=== PATIENT | female | born 1980 | race Caucasian/White ===

== ENCOUNTER 2025-02-19 08:31 | Emergency (ER) | payer MEDICAID, SELFPAY ==
--- NOTE | ~2025-02-19 | CT_ITS ---
CLINICAL HISTORY: dizziness CT head without contrast Comparison: None Findings: No intra-axial mass, midline shift, hydrocephalus, or acute hemorrhage. No significant atrophy-like change or white matter disease. There is no sinus or mastoid fluid. The orbits are unremarkable. There is no acute fracture. IMPRESSION: 1. No acute intracranial findings. This document has been electronically signed by: Bernice Knox MD on 02/19/2025 17:47:25
[2025-02-19 08:39] VITALS: BP 118/84; PULSE 112
[2025-02-19 08:56] VITALS: BP 142/72; PULSE 65; RESP 18; TEMP 36.7; O2SAT 96; BMI 27.9
--- NOTE | 2025-02-19 08:56 | ED.NAVMDI ---
HPI - Nausea/Vomiting/Diarrhea General Chief complaint: General Medical Stated complaint: enlarged artery Time Seen by Provider: 02/19/25 16:50 Source: patient, EMS, RN notes reviewed and old records reviewed Mode of arrival: EMS Limitations: no limitations History of Present Illness ED Provider: Consuelo HPI Narrative: Patient is a 44-year-old female with history of sleeve gastrectomy presenting to the ED with complaint of nausea this am while driving her son to school. States that she rolled the car window and nausea improved slightly. Then while walking into work she again felt nauseated, lightheaded, near-syncopal, and had ringing in both ears. She dropped her lunchbox and had coworkers call an ambulance and get her a chair to sit down. Ringing has since resolved but she is unable to state how long that lasted. Denies chest pain, palpitations, shortness of breath. She is a non-smoker, not on OCPs, denies recent travel. LMP around one month ago. States son was recently sick with cough and sore throat, he tested negative for strep, flu, covid. Reports mild headache but states she has headaches near daily and this is typical of her usual headaches. Related Data Allergies Allergy/AdvReac Type Severity Reaction Status Date / Time cabbage Allergy Intermediate THROAT Verified 02/19/25 08:57 ITCHES latex [LATEX] Allergy Intermediate HIVES Verified 02/19/25 08:57 iris Allergy Intermediate THROAT Verified 02/19/25 08:57 ITCHES sulfamethoxazole Allergy Intermediate HIVES Verified 02/19/25 08:57 [From BACTRIM] trimethoprim [From BACTRIM] Allergy Intermediate HIVES Verified 02/19/25 08:57 Review of Systems Review of Systems: As per HPI Yes all other systems are reviewed and are negative Constitutional: Constitutional: Reports as per HPI [facility] Social History Social History Advance Directives: No Advance Directives Information Provided: No Do you have a plan to hurt others: No Plan Physical Exam Vital Signs: Vital Signs: Last Vital Signs Temp 97.9 F 02/19/25 13:45 Pulse 69 02/19/25 13:45 Resp 18 02/19/25 13:45 BP 128/85 02/19/25 13:45 Pulse Ox 100 02/19/25 13:45 O2 Del Method Room Air 02/19/25 13:45 BMI result Body Mass Index 27.9 Vital signs have been reviewed and appear to be correct. Blood pressure normal. Heart rate normal. Respiratory rate normal. Temperature normal. Oxygen saturation normal. Const: General: cooperative, healthy appearing and no acute distress Orientation/consciousness: oriented to person, oriented to place, oriented to time and patient oriented x3 Limitations: no limitations HEENT: Head: Yes normocephalic and Yes atraumatic Ears: external ears normal General nose exam: Normal external nose present Face and sinus: Yes face symmetric Mouth: oropharynx normal and moist mucous membranes Throat: Yes uvula midline Eyes: Pupils: Equal, round and reactive pupils present Neck: Neck: Yes normal visual inspection and Yes supple Resp: Effort & Inspection: normal respiratory effort and able to speak in complete sentences Auscultation: clear to auscultation bilaterally Cardio: Rate: regular rate Rhythm: regular rhythm Heart sounds: S1 normal heart sound present and S2 normal heart sound present GI: Palpation (GI): Soft to palpation and nontender Auscultation: normoactive bowel sounds : General: Yes no CVA tenderness Back/Spine/Pelvis: Back: no CVA tenderness Skin: General skin exam: elasticity normal and turgor normal Neuro: General: oriented to person, oriented to place, oriented to time, patient oriented x3, moves all extremities, no focal motor deficits and CN's II-XI intact bilaterally Cranial nerves: Yes Equal, round and reactive pupils present Cognition (Neuro): normal cognition Extrem: General: Yes full ROM, Yes no pedal edema and Yes no calf tenderness Psych: Mental Status: mental status grossly normal Affect: normal affect Thought process: Normal thought process present Course Course Course Narrative: 44 yo female with PMH of gastric sleeve now on phentermine here with c/o having episodes of shaking, feeling nausea, no pain, dizziness and ringing in her ears. She was trying to work. She states she was fine yesterday. She feels dizzines and off. She takes no medications every day. At this time will need basic lab, EKG, poc blood sugar. this is a RAPID medical screening exam the rest of the history and physical exam is to be done by the main provider. NIK 02/19/25 858am Medications Administered Discontinued Medications Generic Name Dose Route Start Last Admin Trade Name Freq PRN Reason Stop Dose Admin Ondansetron HCl 4 mg 02/19/25 08:58 02/19/25 09:00 Ondansetron Odt 4 Mg Tab.Glai BLUE 02/19/25 08:59 4 mg ONCE ONE Administration Medical Decision Making Medical Decision Making [facility] Narrative: Patient is a 44-year-old female with history of sleeve gastrectomy presenting to the ED with complaint of nausea this am while driving her son to school. On exam patient is awake, A+Ox3, VS WNL, afebrile, normal neurological exam without focal deficits, physical exam findings as above. Given reported symptoms and physical exam findings, initial differential includes but is not limited to viral illness, electrolyte abnormality, cardiac arrhythmia, . Unlikely ACS, PE, CVA/ICH. Labs unremarkable, negative troponin x 2, negative d-dimer. EKG shows NSR. HCG of 3 while technically negative could be indicative of very early . This was discussed with patient and it was recommended that she either use a home test or have repeat bloodwork if her upcoming menstrual cycle is late. CT head notable for no acute abnormalities. My interpretation is in agreement with the radiologist's interpretation. Strep negative. Viral panel pending but through shared decision making, patient opted for discharge and we will call with positive flu/covid results. Advised patient to follow up with PCP for any ongoing symptoms, discussed with patient that if symptoms persist she may need a referral to cardiology for a Holter monitor. Return precautions discussed. Patient verbalized understanding of and agreement with plan. Differential Diagnosis Differential Diagnoses: The differential diagnosis associated with the presentation includes As per [facility] Admission/Observation Consideration of admission/observation: Escalation of care including admission/observation considered Patient would have been admitted to the hospital had their work up had any findings where hospital admission was appropriate and their clinical presentation warranted hospital admission. Lab Data [facility] Lab Attestation statement: I reviewed the patient's lab results. As per [facility] 02/19/25 09:14 02/19/25 09:14 Labs: Lab Results 02/19/25 02/19/25 02/19/25 Range/Units 09:14 14:22 18:01 WBC 3.8 L (4.8-10.8) X10*3/uL RBC 5.05 (4.20-5.50) X10*6/uL Hgb 13.8 (12.0-16.0) g/dl Hct 41.9 (37.0-47.0) % MCV 83.0 (80.0-98.0) fL MCH 27.3 (27.0-33.0) pg MCHC 32.9 (31.0-35.0) g/dl RDW 13.5 (11.0-16.0) % Plt Count 319 (160-400) X10*3/uL MPV 9.4 (9.4-12.3) fL Immature Gran % (Auto) 0.3 (0.0-0.4) % Neut % (Auto) 68.5 (45-73) % Lymph % (Auto) 20.3 (20-40) % Hodgeman % (Auto) 6.4 (2-11) % Eos % (Auto) 4.0 (0-4) % Baso % (Auto) 0.5 (0-2) % Lymph # (Auto) 0.8 L (1.2-4.9) X10*3/uL Hodgeman # (Auto) 0.2 (0.1-1.2) X10*3/uL Eos # (Auto) 0.2 (0.0-0.4) X10*3/uL Baso # (Auto) 0.0 (0.0-0.2) X10*3/uL Abs Immat Gran (auto) 0.01 (0.00-0.03) X10*3/uL Absolute Neuts (auto) 2.6 (2.0-8.3) x10*3/uL Absolute Nucleated RBC 0.000 (0.0-0.012) X10*3/uL Nucleated RBC % (auto) 0.0 (0.0-0.2) /100WBC PT 11.3 (10.9-12.4) SEC INR 1.0 (0.9-1.1) APTT 36.3 (26.0-36.8) SEC D-Dimer High Sensitivty < 150 NG/ML Sodium 142 (135-145) mmol/L Potassium 3.4 (3.3-5.1) mmol/L Chloride 107 (96-108) mmol/L Carbon Dioxide 29 (22-29) mmol/L Anion Gap 9 L (12-20) BUN 14 (9-16) mg/dL Creatinine 0.79 (0.5-1.4) mg/dL Estim Creat Clear Calc 96.1 Estimated GFR > 60 Random Glucose 88 (60-115) mg/dL Calcium 9.9 (8.4-10.2) mg/dL Magnesium 1.9 (1.6-2.6) mg/dL Total Bilirubin 1.0 (0.0-1.0) mg/dL Direct Bilirubin 0.3 (0.0-0.5) mg/dL AST 23 (5-31) U/L ALT 14 (0-31) U/L Alkaline Phosphatase 82 (39-117) U/L Troponin I High Sens < 2.7 < 2.7 (<3.5-17.0) ng/L Total Protein 7.8 (6.5-8.0) g/dL Albumin 4.8 (3.5-5.0) g/dL Lipase 30 (8-78) U/L TSH 1.94 (0.32-4.0) uIU/mL Beta HCG, Quant 3 mIU/mL S. pyogenes GrpA DALILA Negative (Negative) Independent Interpretation I performed an independent interpretation of an: EKG (normal sinus rhythm, rate 66bpm, normal HI interval and QTc) and CT Scan Interpretation: CT head is without any acute abnormalities. Radiology Impression Discussion of test interpretation with radiology: I have reviewed the radiologist's reading. Radiologist Impression: CT head without contrast Comparison: None Findings: No intra-axial mass, midline shift, hydrocephalus, or acute hemorrhage. No significant atrophy-like change or white matter disease. There is no sinus or mastoid fluid. The orbits are unremarkable. There is no acute fracture. IMPRESSION: 1. No acute intracranial findings. External Record Review External record reviewed: Inpatient record, Office record and Outpatient record Discharge Plan Discharge Clinical Impression: Light-headedness Patient Disposition: Home, Self-Care Instructions: Lightheadedness (ED) Additional Instructions: You were evaluated in the emergency department today for an episode of lightheadedness. Your EKG, labs, urinalysis, and CT scan of your brain were all very reassuring. You tested negative for strep. Your flu/RSV/Covid test is pending and we will contact you with any positive results. Your hCG level today was 3 which, while technically negative, could be indicative of very early . If your next menstrual cycle is late, we recommend taking a home test or having your HCG level rechecked either by your PCP or [facility]. Follow up with your primary care provider if your symptoms persist, as you may need a referral to cardiology for a Holter monitor. Return to the ED if you experience fainting, ongoing dizziness/lightheadedness, chest pain, difficulty breathing, fever, or any other new or concerning symptoms. Print Language: Chinese
--- NOTE | 2025-02-19 08:58 | ECG_ITS ---
Test Reason : dizziness Blood Pressure : */* mmHG Vent. Rate : 66 BPM Atrial Rate : 66 BPM P-R Int : 196 ms QRS Dur : 88 ms QT Int : 394 ms P-R-T Axes : 48 -18 22 degrees QTcB Int : 413 ms Normal sinus rhythm Normal ECG No previous ECGs available Referred By: Bridget Lemus Electronically Signed By: SHAY WHATLEY MD
[2025-02-19] MEDS: Ondansetron ODT 4 MG TAB.RAPDIS TRANSLINGU (09:00)
[2025-02-19 09:18] LABS: MANUAL DIFF FLAG NO
[2025-02-19 09:25] LABS: Basophils Percent Auto 0.5 % (0-2); Eosinophils Absolute Auto 0.2 X10*3/uL (0.0-0.4); Hematocrit 41.9 % (37.0-47.0); Hemoglobin 13.8 g/dl (12.0-16.0); Imm Gran Abs Auto 0.01 X10*3/uL (0.00-0.03); Imm Gran Pct Auto 0.3 % (0.0-0.4); Lymphocytes Absolute Auto 0.8 X10*3/uL (1.2-4.9); Lymphocytes Percent Auto 20.3 % (20-40); Mean Corpuscular HGB Conc 32.9 g/dl (31.0-35.0); Mean Corpuscular Hemoglobin 27.3 pg (27.0-33.0); Mean Platelet Volume 9.4 fL (9.4-12.3); Monocytes Absolute Auto 0.2 X10*3/uL (0.1-1.2); Monocytes Percent Auto 6.4 % (2-11); Neutrophils Absolute Auto 2.6 x10*3/uL (2.0-8.3); Neutrophils Percent Auto 68.5 % (45-73); Platelet Count 319 X10*3/uL (160-400); Red Blood Count 5.05 X10*6/uL (4.20-5.50); Red Cell Distribution Width 13.5 % (11.0-16.0); White Blood Count 3.8 X10*3/uL (4.8-10.8)
[2025-02-19 09:45] LABS: Alanine Aminotransferase 14 U/L (0-31); Albumin Level 4.8 g/dL (3.5-5.0); Alkaline Phosphatase 82 U/L (39-117); Anion Gap 9 (12-20); Aspartate Amino Transferase 23 U/L (5-31); Bilirubin Direct 0.3 mg/dL (0.0-0.5); Blood Urea Nitrogen 14 mg/dL (9-16); Calcium 9.9 mg/dL (8.4-10.2); Carbon Dioxide 29 mmol/L (22-29); Chloride 107 mmol/L (96-108); Creatinine Clr Calc Pharmacy 96.1; Estimated Glomerular Filt Rate > 60; Glucose Random 88 mg/dL (60-115); Lipase 30 U/L (8-78); Magnesium 1.9 mg/dL (1.6-2.6); Potassium 3.4 mmol/L (3.3-5.1); Sodium 142 mmol/L (135-145); Total Protein 7.8 g/dL (6.5-8.0)
[2025-02-19 09:47] LABS: HCG Quantitative 3 mIU/mL
[2025-02-19 09:50] LABS: Troponin-I High Sensitivity < 2.7 ng/L (<3.5-17.0)
[2025-02-19 13:45] VITALS: BP 128/85; PULSE 69; RESP 18; TEMP 36.6; O2SAT 100
[2025-02-19 14:36] LABS: Prothrombin Time 11.3 SEC (10.9-12.4)
[2025-02-19 14:38] LABS: Partial Thromboplastin Time 36.3 SEC (26.0-36.8)
[2025-02-19 14:47] LABS: Troponin-I High Sensitivity < 2.7 ng/L (<3.5-17.0)
[2025-02-19 16:23] LABS: D Dimer High Sensitivity < 150 NG/ML
[2025-02-19 17:51] LABS: TSH reflex Free T4 1.94 uIU/mL (0.32-4.0)
[2025-02-19 18:13] LABS: IDNOW Serial# 6674DD1D; Strep A Nucleic Acid Negative (Negative)
--- OUTSIDE RECORDS SUMMARY | 2025-02-19 18:23 | XMS_ITS | Clinical Summary ---
Author Organization [facility] Address [address] [place] [address] Care Team Providers Care Terminal Worker Name Role Phone Negin Patel MD Primary Care Provider Allergies Active Allergy Reactions Criticality Noted Date Comments Sulfamethoxazole-Trimethoprim 2023 Ekepevwdyq-Wkeb-Ilafgtwb Nausea And Vomiting Kiwi Extract Hives 03/05/2020 Latex 04/11/2024 Naproxen 04/11/2024 Shellfish 04/11/2024 Shellfish Allergy Hives 03/05/2020 scallop Medications Medication Sig Dispensed Refills Start Date End Date Status cetirizine (ZyrTEC ALLERGY) 10 MG tablet Take 1 tablet (10 mg total) by mouth daily. 0 Active Active Problems Problem Noted Date Diagnosed Date Iron deficiency anemia 04/11/2024 Cubital tunnel syndrome on right 12/27/2023 04/11/2024 Overweight (BMI 25.0-29.9) 09/07/202304/11 Intestinal malabsorption following gastrectomy 0 01/05/2021 04/11/2024 CLEMENTE (generalized anxiety disorder) 08/25/2020 04/11/2024 Vitamin D deficiency 07/03/2020 04/11/2024 GERD (gastroesophageal reflux disease) 8 04/11/2024 Family History Medical History Relation Name Comments Colon cancer Maternal Grandfather Relation Name Status Comments Father Alive Maternal Grandfather Mother Alive Social History Tobacco Use Types Packs/Day Years Used Date Smoking Tobacco: Never Smokeless Tobacco: Never Tobacco Cessation:Counseling Given: Not Answered Alcohol Use Standard Drinks/Week Comments Not Currently 0 (1 standard drink = 0.6 oz pur e alcohol) Sex and Gender Information Value Date Recorded Sex Assigned at Female 03/20/2024 12:31 PM EDT Gender Identity Not on file Sexual Orientation Not on file Job Start Date Occupation Industry Not on file Not on file Not on file Last Filed Vital Signs Vital Sign Reading Time Taken Comments Blood Pressure 104/66 05/08/2024 9:06 AM EDT Pulse 73 05/08/2024 9:06 AM EDT Temperature 36.2 ??C (97.2 ??F) 05/08/2024 9:06 AM ED T Respiratory Rate 18 05/08/2024 9:06 AM EDT Oxygen Saturation 100% 05/08/2024 9:06 AM EDT Inhaled Oxygen Concentration - - Weight 77.9 kg (171 lb 11.8 oz) 04/18/2024 2:10 PM EDT Height 167.6 cm (5' 6 ) 04/11/2024 12:5 8 PM EDT Body Mass Index 27.72 04/11/2024 12:58 PM EDT Plan of Treatment Health Maintenance Due Date Last Done Comments Hepatitis C Screening 1980 Depression Screening 1992 BMI Counseling 1998 Preventative Health Evaluation 1998 Cervical Cancer Screening (Pap Smear) 2001 Hepatitis B Vaccines (3 of 3 - 19+ 3-dose series) 11/22/2011 06/23/2011, 06/23/2011, 05/24/2011, Additional history exists DTap / Tdap / Td (2 - Td or Tdap) 05/18/2021 05/18/2011 COVID-19 Vaccine ( season) 2024 11/07/2021, 03/09/2021, 02/16/2021 Influenza Vaccine (Season Ended) 2025 11/07/2021, 09/20/2021, 06/08/2020, Additional history exists Pneumococcal Vaccine Aged Out No long er eligible based on patient's age to complete this topic RSV Ped < 20 months Aged Out No longe r eligible based on patient's age to complete this topic Care Teams Terminal Worker Relationship Specialty Start Date End Date Negin Patel MD [address] [phone] PCP - General Internal Medicine 03/20/24
[2025-02-19 18:34] VITALS: BP 120/74; PULSE 68; RESP 19; TEMP 36.5; O2SAT 99
[2025-02-19 18:40] VITALS: BP 120/74; PULSE 68; RESP 19; TEMP 36.5; O2SAT 99
[2025-02-19 18:43] LABS: Influenza A PCR NEGATIVE (Negative); Influenza B PCR NEGATIVE (Negative); Resp Syncy Virus RNA Qual PCR NEGATIVE (Negative); SARS COV2 PCR INHOUSE NEGATIVE (Negative)
== END 2025-02-19 18:41 | disposition home or self-care (01) ==
PROVIDERS: Emergency Medicine; Physician Assistant; Registered Nurse Emergency; Emergency Provider Emergency Medicine; PCP Internal Medicine
DX: R42 Dizziness and giddiness (principal); Z03.818 Encounter for observation for suspected exposure to other biological agents ruled out
CPT/HCPCS: 0241U; 36415; 70450; 80048; 80076; 83690; 83735; 84443; 84484; 84702; 85025; 85379; 85610; 85730; 87651; 93005; 99284

== ENCOUNTER → 2025-02-19 08:58 | Outpatient (BNV) | payer OTHER, SELFPAY | PROVIDERS: Visit Provider Internal Medicine Cardiovascular Disease | DX: R42 Dizziness and giddiness (principal) | CPT/HCPCS: 93010 ==

== ENCOUNTER → 2025-02-19 16:37 | Outpatient (BNV) | payer MEDICAID, SELFPAY | PROVIDERS: Emergency Provider Emergency Medicine; PCP Internal Medicine; Visit Provider Radiology Diagnostic Radiology | DX: R42 Dizziness and giddiness (principal) | CPT/HCPCS: 70450 ==

== ENCOUNTER 2025-03-25 10:58 | Outpatient (REF) | payer OTHER, SELFPAY ==
--- OUTSIDE RECORDS SUMMARY | 2025-01-20 09:59 | XMS_ITS | Continuity of Care Document ---
Author Organization [facility] Address [address] [place] [address] Dr [address] [place] [id number] Phone Care Team Providers Care Curtain Feller Blindstitch Name Role Phone Dyllan MOLINA, ONUR, Al HUSSEIN Unavailable U navailable Advance Directives Directive Yes / No Effective Date File Name No Information Encounters Encounter Description Practice Location Reason(s) For Visit Diagnoses Date Provider Providers Copied on Encounter [facility], [address] [place] [address] [address], [place], [id number], tel:[phone] [facility] No Information 5 Dyllan MOLINA, KEENAN MOHR. [address] [place] [address], [place], [place], [id number] , [place]. tel:[phone] Family History Family Member Type Diagnosis Age At Onset No Information Payers Payer name Insurance type Covered alliance party ID Authoriza tion(s) No Information Social History Type Description Quantity Date Captured Comments Sex Female Smoking Status No Information Chief Complaint And Reason For Visit No Information Reason For Referral Reason For Referral No Information History Of Present Illness Encounter Date Complaint History Of Prese nt Illness No Information Functional Status Date Functional Assessmen t No Information Instructions Date Instruction Additional Infor mation No Information Assessments Type Assessment Date No Information Patient Care Teams Name Effective Dates (start - stop) Status Members No Information
--- OUTSIDE RECORDS SUMMARY | 2025-03-25 12:23 | XMS_ITS | Clinical Summary ---
Author Organization [facility] Address [address] [place] [address] Care Team Providers Care Bicycle I Assembler Name Role Phone Pcp, No Primary Care Provider Unavailabl e Social History Tobacco Use Types Packs/Day Years Used Date Smoking Tobacco: Never Assessed Comments Unknown Sex and Gender Information Value Date Recorded Sex Assigned at Not on file Legal Sex Female 6:38 PM EST Gender Identity Not on file Sexual Orientation Not on file Plan of Treatment Health Maintenance Due Date Last Done Comments Hepatitis C Virus Screening 1980 HIV Screening 1993 DTaP/Tdap/Td Vaccines (1 - Tdap) 1999 Hepatitis B Vaccines (1 of 3 - 19+ 3-dose series) 1999 COVID-19 Vaccine (2023-2 5 season) 2024 HPV Vaccines Aged Out No longer eligi ble based on patient's age to complete this topic Pneumococcal Vaccine: Pediat yassine (0-5 Years) and At-Risk Patients (6 to 49 Years) Aged Out No longer eligible b ased on patient's age to complete this topic Care Teams Bicycle I Assembler Relationship Specialty Start Date End Date Pcp, No [address] [place] [address] PCP - General 11/19/20
--- OUTSIDE RECORDS SUMMARY | 2025-03-25 12:23 | XMS_ITS | Clinical Summary ---
Author Organization [facility] Address [address] [place] [address] Care Team Providers Care Magneto Repairer Name Role Phone Negin Patel MD Primary Care Provider [phone] Allergies Active Allergy Reactions Criticality Noted Date Comments Sulfamethoxazole-Trimethoprim 2023 Ovmhzdikib-Xykc-Sodgfyzj Nausea And Vomiting Kiwi Extract Hives 03/05/2020 [...] 73 05/08/2024 9:06 AM EDT Temperature 36.2 C (97.2 F) 05/08/2024 9:06 AM EDT Respiratory Rate 18 05/08/2024 9:06 AM EDT [...] season) 2024 11/07/2021, 03/09/2021, 02/16/2021 Influenza Vaccine (#1) 2025 2, 09/20/2021, 06/08/2020, Additional history exists Pneumococcal Vaccine Aged Out No long er eligible based on patient's age to complete this topic RSV Ped < 20 months Aged Out No longe r eligible based on patient's age to complete this topic Care Teams Magneto Repairer Relationship Specialty Start Date End Date Negin Patel MD [address] [place] [phone] PCP - General Internal Medicine 03/20/24
[2025-03-25 13:44] LABS: MANUAL DIFF FLAG NO
[2025-03-25 13:57] LABS: Hematocrit 38.7 % (37.0-47.0); Hemoglobin 12.5 g/dl (12.0-16.0); Imm Gran Abs Auto 0.02 X10*3/uL (0.00-0.03); Imm Gran Pct Auto 0.4 % (0.0-0.4); Lymphocytes Absolute Auto 1.1 X10*3/uL (1.2-4.9); Mean Corpuscular HGB Conc 32.3 g/dl (31.0-35.0); Mean Corpuscular Hemoglobin 27.0 pg (27.0-33.0); Mean Corpuscular Volume 83.6 fL (80.0-98.0); NRBC Abs Auto 0.000 X10*3/uL (0.0-0.012); NRBC Pct Auto 0.0 /100WBC (0.0-0.2); Platelet Count 328 X10*3/uL (160-400); Red Blood Count 4.63 X10*6/uL (4.20-5.50); White Blood Count 5.5 X10*3/uL (4.8-10.8)
[2025-03-25 14:37] LABS: Iron 82 mcg/dL (30-160); Percent Iron Saturation 28 % (15-50); Total Iron Binding Capacity 296 mcg/dL (228-428); Unsaturated Iron Binding 214 ug/dL
[2025-03-25 14:47] LABS: Vitamin B12 300 pg/mL (200-900)
== END 2025-03-25 10:59 | disposition home or self-care (01) ==
LOC: HO.HHCL 10:58
PROVIDERS: PCP Internal Medicine; Visit Provider Internal Medicine
DX: D50.9 Iron deficiency anemia, unspecified (principal)
CPT/HCPCS: 36415; 82607; 83540; 85025

== ENCOUNTER 2025-07-02 09:44 | Outpatient (REF) | payer OTHER, SELFPAY ==
--- OUTSIDE RECORDS SUMMARY | 2025-07-02 11:29 | XMS_ITS | Encounter Summary ---
Author Organization [facility] Address [address] [place] [address] Care Team Providers Care Sports Teacher Name Role Phone Negin Patel MD Primary Care Provider [phone] Reason for Visit * Reason Onset Date Comments Vaginal Pain 07/01/2025 Encounter Details Date Type Department Care Team (Late st Contact Info) Description 07/01/2025 Telephone Obstetrics and [facility]necology [facility] [place] [address] [place] [address] Jessenia Coles CNM [address] [place] [phone] Social History Tobacco Use Types Packs/Day Years Used Date Smoking Tobacco: Never Smokeless Tobacco: Never Alcohol Use Standard Drinks/Week Comments Never 0 (1 standard drink = 0.6 oz pur e alcohol) Housing Instability Answer Date Recorde d Are you worried that in the next 2 months you may not have stable housing? No 03/26/2025 Food Access & Nutrition Answer Date Rec orded Do you have access to a vari ety of food including fruits and vegetables? Yes 03/26/2025 Health Literacy Answer Date Recorded How often do you need to hav e someone help you when you read instructions, pamphlets, or other written material from your doctor or pharmacy? Never 03/26/2025 Caregiver: How often do you need to have someone help you when you read instructions, pamphlets, or other written material from your doctor or pharmacy? Not on file 03/26/2025 Financial Risk Answer Date Recorded How hard is it for you to pa y for the very basics like food, housing, medical care, and air conditioning / heating? Not very hard 03/26/2025 Transportation Answer Date Recorded Has the lack of transportati on kept you from meetings, work, or from getting things needed for daily living? No Has the lack of transportati on kept you from medical appointments or from getting medications? No 03/26/2025 Social Isolation Answer Date Recorded How often do you feel lonely or isolated from th ose around you? Never 03/26/2025 Food Risk Answer Date Recorded Within the past 12 months we worried whether our food would run out before we got money to buy more. Never true 03/26/2025 Within the past 12 months th e food we bought just didn't last and we didn't have money to get more. Never true 03/26/2025 Dependent Care Answer Date Recorded Do you need help finding or paying for care for your loved ones. For example, child's nurse or elderly care for an older adult? No 03/26/2025 Education Answer Date Recorded Do you think completing more education or training, like finishing a GED, going to college, or learning a trade, would be helpful for you? Yes 03/26/2025 Employment and Income Answer Date Recor ded During the last four weeks, have you been actively looking for work? Yes 03/26/2025 Living Situation Answer Date Recorded What is your living situation? Unrecognized valu e 03/26/2025 Comments Unknown Sex and Gender Information Value Date Recorded Sex Assigned at Female 12/04/2024 12:28 PM EDT Legal Sex Female 1:09 PM EST Gender Identity Female 12/04/2024 12:28 PM EDT Sexual Orientation Straight 12/04/2024 12 :28 PM EDT documented as of this encounter Functional Status * Are you deaf or do you have serious difficulty hearing? Answer Date of Assessment Author No 12/04/2024 1:30 PM EDT Srinivasa Eng, RN * Are you blind or do you have serious difficulty seeing, even when wearing glasses? Answer Date of Assessment Author No 12/04/2024 1:30 PM EDT Srinivasa Eng RN * Do you have serious difficulty walking or climbing stairs? Answer Date of Assessment Author No 12/04/2024 1:30 PM EDT Srinivasa Eng RN * Do you have serious difficulty dressing or bathing? Answer Date of Assessment Author No 12/04/2024 1:30 PM EDT Srinivasa Eng RN * Because of a physical, mental, or emotional condition, do you have serious difficulty doing errandsalone such as visiting the doctor? Answer Date of Assessment Author No 12/04/2024 1:30 PM EDT Srinivasa Eng RN documented as of this encounter Mental Status * Because of a physical, mental, or emotional condition, do you have serious difficulty concentrating, remembering, or making decisions? 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 Is now calling with complaints of burning andirritation. Feels like coming from urethra but not sure. Symptoms started on Monday. Started with a lot of etienne/pressure as if she had to push. She kept trying but nothing would come out. She reports has to void every 2 seconds. Has so much pressure. When voids/wipes sees light pink blood and is still seeing this today. Reports urethral area hurts. No fever, chills, n/v, flank pain.Urine has no odor and looks to be light yellow. Requesting order for urine culture to be faxed to [facility] fax [phone] as she works there. Lab order placed and faxed as requested. Instructed to push fluids, tylenol/motrin prn pain. * Dot Melida - 07/01/2025 1:44 PM EDT Chief Complaint/problem: patient would like to speak to nurse regarding vaginal burning and irritation How long has the patient had this problem? - Pt???s [employer] provider: Jessenia Coles CNM Last menstrual period (LMP) or EDC (due date): - documented in this encounter Plan of Treatment Upcoming Encounters Date Type Department Care Team (Late st Contact Info) Description 07/25/2025 9:45 AM EST Office Visit Internal Medicine - [place] 175 [facility] [address] [place] [phone] Negin Patel MD 175 [facility] [address] [place] [phone] 08/19/2025 9:15 AM EST Office Visit Bariatric Surgery - [place] 175 [facility] [address] [place] [phone] Clay Ibarra MD [address] [place] [phone] 10/06/2025 9:00 AM EST Office Visit [facility] Hematology Oncology [address] [place] [phone] Leann Prince DO [address] [place] [address] 10/13/2025 3:20 PM EST Office Visit Gastroenterology - 299 [facility] 299 [facility] [address] [place] [phone] Olga Laws NP 175 [facility] [address] [place] [address] Scheduled Orders Name Type Priority Associated Diagnoses Orde r Schedule Urinalysis with reflex microscopic and culture Lab Routine Urinary urgency Hematuria, unspecified type Urinary frequency 1 Occurrences starting 07/01/2025 until 07/01/2026 documented as of this encounter Visit Diagnoses Diagnosis Urinary urgency- Primary Urgency of urination Hematuria, unspecified type Urinary frequency documented in this encounter Additional Health Concerns Assessment Noted Time PHQ-9 Depression Total Score: 4 03/26/20 25 6:56 PM EDT documented as of this encounter Care Teams Sports Teacher Relationship Specialty Start Date End Date Negin Patel MD [address] [place] [phone] PCP - General Internal Medicine 04/08/22 documented as of this encounter
--- OUTSIDE RECORDS SUMMARY | 2025-07-02 11:29 | XMS_ITS | Clinical Summary ---
Author Organization [facility] Address [address] [place] [address] Phone Care Team Providers Care Concrete Bucket Loader Name Role Phone Negin Patel MD Primary Care Provider [phone] Allergies Active Allergy Reactions Criticality Noted Date Comments Butalbital-Acetaminoph en-Caff Nausea And Vomiting 06/26/2009 Shellfish Containing Products 06/28/2022 Latex Anaphylaxis,Hives,It c ankit,Rash,Shortness Of Breath,Dermatitis,Swe lling High 12/04/2008 Naproxen 01/25/2017 Hives Sulfa (Sulfonamide Antibiotics) Anaphylaxis,Hives,Itc ankit,Shortness Of Breath,Swelling High 06/28/2022 Sulfamethoxazole-Trime thoprim Swelling,Itching,Hive s 05/05/2009 Had Bactrim DS x 4 pills. Medications amitriptyline (ELAVIL) 25 MG tablet 06/25/2022 Active cetirizine (ZYRTEC) 10 MG tablet Take 1 tablet by mouth 2 (two) times a day. 06/14/2022 Active cyanocobalamin, vitamin B-12, 500 MCG tablet Take 500 mcg by mouth daily. 04/24/2022 Active EPINEPHrine (SYMJEPI) 0.3 mg/0.3 mL syringe Inject 1 Device as directed. 12/30/2021 Active hydrOXYzine (VISTARIL) 25 MG capsule Take 25 mg by mouth. 04/12/2022 Active cephalexin (KEFLEX) 500 MG capsule Take 1 capsule (500 mg total) by mouth 4 (four) times a day. 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 INFLUENZA, SPLIT VIRUS, TRIV ALENT W/ PRESERVATIVE IM 07/12/2017,06/06/2016,09/12/2014,2011 Influenza Quadrivalent MDCK Preservative Free IM 06/08/2020 Influenza, Unspecified Formulation 11/07/2021 PPD Test 06/06/2016, 4,12/19/2012,2010 Td (adult),2 Lf Tetanus Toxo id, PF, Adsorbed 09/20/2021 Tdap 05/18/2011,05/18/2011 Family History Medical History Relation Comments Heart attack Maternal Grandfather Relation Status Comments Father Alive Maternal Grandfather Mother Alive Social History Tobacco Use Types Packs/Day Years Used Date Smoking Tobacco: Never Smokeless Tobacco: Never Tobacco Cessation:Counseling Given: Not Answered Alcohol Use Standard Drinks/Week Comments Never 0 (1 standard drink = 0.6 oz pur e alcohol) Education Answer Date Recorded Are you interested in more education? Not on tres e 01/07/2023 Are you concerned about learning? Not on file 01/07/2023 No 01/07/2023 No 01/07/2023 Digital Access Answer Date Recorded No 02/05/2023 No 02/05/2023 No 02/05/2023 Reliable internet access at home? Not on file 02/05/2023 Device with a working camera? Not on file Intimate Partner Violence Answer Date R ecorded Are you denied basic needs s uch as food, clothing, or medical care? No 08/29/2022 In the past 12 months have y ou been in a relationship with a person who hurts, threatens, or tries to control you? No 08/29/2022 Are you denied basic needs s uch as food, clothing, or medical care? No 08/29/2022 In the past 12 months have y ou been in a relationship with a person who hurts, threatens, or tries to control you? No 08/29/2022 Comments No Sex and Gender Information Value Date Recorded Sex Assigned at Female 06/25/2022 4:46 PM EDT Legal Sex Female 11:53 AM EDT Gender Identity Female 06/25/2022 4:46 PM EDT Sexual Orientation Not on file Last Filed Vital Signs Vital Sign Reading Time Taken Comments Blood Pressure 110/67 08/29/2022 1:00 PM EST Pulse 66 08/29/2022 1:00 PM EST Temperature 36.5 C (97.7 F) 08/29/2022 12:30 PM EST Respiratory Rate 18 08/29/2022 1:00 PM EST Oxygen Saturation 98% 08/29/2022 1:00 PM EST Inhaled Oxygen Concentration - - Weight 71.7 kg (158 lb) 08/29/2022 8:50 AM EST Height 167.6 cm (5' 6 ) 08/29/2022 8:50 AM EST Body Mass Index 25.5 08/29/2022 8:50 AM EST Plan of Treatment Health Maintenance Due Date Last Done Comments LIPID PANEL 1980 DEPRESSION SCREENING 1992 HEPATITIS C SCREENING 1998 HIV ONE-TIME SCREENING (18-65 YEARS) 1998 PAP SMEAR 2001 SCREENING FOR DIABETES 2015 MAMMOGRAM 2020 INFLUENZA VACCINE (#1) 2025 2, 09/20/2021, 06/08/2020, Additional history exists COVID-19 VACCINE ( season) 2025 11/07/2021, 11/07/2021, 03/09/2021, Additional history exists COLOGUARD 2025 COLONOSCOPY 2025 COLORECTAL CANCER SCREENING 2025 FIT TEST 2025 FOBT 2025 SIGMOIDOSCOPY 2025 VIRTUAL COLONOSCOPY 2025 Adult Td,Tdap Booster 12/04/2031 12/03/2021 , 09/20/2021, 09/20/2021, Additional history exists SMOKING STATUS SCREENING (Once After 26 Yrs) Completed 08/29/2022 HEPATITIS A VACCINES Aged Out No long er eligible based on patient's age to complete this topic HIB VACCINES Aged Out No longer eligi ble based on patient's age to complete this topic MENINGOCOCCAL VACCINES (ACWY) Aged Out No longer eligible based on patient's age to complete this topic MENINGOCOCCAL VACCINES (B) Aged Out N o longer eligible based on patient's age to complete this topic PNEUMOCOCCAL VACCINES (0-49 years) Aged Out No longer eligible based on patient's age to complete this topic Medical Devices Not on file Insurance [employer] [facility] [place] [facility]CO [facility] ALL[facility] ACO [employer] Advance Directives For more information, please contact: [phone] (9AM - 5PM [place], Monday-Monday) * Full Code (Latest Code Status on File) Date Activated Date Inactivated Comments 08/29/2022 8:13 AM Question Answer Comments Code Status Confirmed With: Patient Care Teams Concrete Bucket Loader Relationship Specialty Start Date End Date Negin Patel MD [address] [phone] PCP - General Internal Medicine 05/17/22 Additional Source Comments The information contained in this document represents components of the legal health record. It is not the complete legal health record.[facility]
--- OUTSIDE RECORDS SUMMARY | 2025-07-02 11:29 | XMS_ITS | Encounter Summary ---
Author Organization [facility] Address [address] [place] [address] Phone Care Team Providers Care Rehab Trainer Name Role Phone Negin Patel MD Primary Care Provider [phone] Encounter Details Date Type Department Care Team (Late st Contact Info) Description 08/29/2022 Procedure Pass OR Admitting Dept - Virtual Department [address] [place] [address] Social History Tobacco Use Types Packs/Day Years Used Date Smoking Tobacco: Never Smokeless Tobacco: Never Alcohol Use Standard Drinks/Week Comments Never 0 (1 standard drink = 0.6 oz pur e alcohol) Intimate Partner Violence Answer Date R ecorded [...] PM EDT Sexual Orientation Not on file documented as of this encounter Plan of Treatment Not on file documented as of this encounter Visit Diagnoses Not on filedocumented in this encounter Care Teams Rehab Trainer Relationship Specialty Start Date End Date Negin Patel MD [address] [phone] PCP - General Internal Medicine 05/17/22 documented as of this encounter Additional Source Comments The information contained in this document represents components of the legal health record. It is not the complete legal health record.[facility]
--- OUTSIDE RECORDS SUMMARY | 2025-07-02 11:29 | XMS_ITS | Encounter Summary ---
Author Organization [facility] Address [address] [place] [address] Care Team Providers Care Airplane Flight Attendant Name Role Phone Negin Patel MD Primary Care Provider [phone] Encounter Details Date Type Department Care Team ([facility] st Contact Info) Description 06/17/2025 Results Follow-Up Internal Medicine - [place] 175 [facility] [address] [place] [phone] Negin Patel MD 175 [facility] [address] [place] [phone] Social History Tobacco Use Types Packs/Day Years [...] care for your loved ones. For example, director of child welfare services or elderly care for an older adult? [...] 1:30 PM EDT Srinivasa Eng RN * Are you blind or do [...] Srinivasa Eng RN documented in this encounter Plan of Treatment Upcoming Encounters Date Type Department Care Team (Late st Contact Info) Description 07/25/2025 9:45 AM EST Office Visit Internal Medicine - [place] 175 [facility] [address] [place] [phone] Negin Patel MD 175 [facility] [address] [place] [phone] 08/19/2025 9:15 AM EST Office Visit Bariatric Surgery - [place] 175 [facility] [address] [place] [phone] Clay Ibarra MD [address] [place] [phone] 10/06/2025 9:00 AM EST Office Visit [facility] Hematology Oncology [address] [place] [phone] Leann Prince DO [address] [place] [address] 10/13/2025 3:20 PM EST Office Visit Gastroenterology - 299 [facility] 299 [facility] [address] [place] [phone] Olga Laws NP [address] [address] documented as of this encounter Visit Diagnoses Not on filedocumented in this encounter Additional Health Concerns Assessment Noted Time PHQ-9 Depression Total Score: 4 03/26/20 25 6:56 PM EDT documented as of this encounter Care Teams Airplane Flight Attendant Relationship Specialty Start Date End Date Negin Patel MD [address] [phone] PCP - General Internal Medicine 04/08/22 documented as of this encounter
--- OUTSIDE RECORDS SUMMARY | 2025-07-02 11:29 | XMS_ITS | Clinical Summary ---
Author Organization [facility] Address [address] [place] [address] Care Team Providers Care Operations Technician Name Role Phone Negin Patel MD Primary Care Provider [phone] Allergies Active Allergy Reactions Criticality Noted Date Comments Sulfamethoxazole-Trimethoprim 2023 Gtnkcwocgq-Vdyf-Yuuvpzzc Nausea And Vomiting Kiwi Extract Hives 03/05/2020 [...] Tdap) 05/18/2021 05/18/2011 COVID-19 Vaccine ( season) 2025 11/07/2021, 03/09/2021, 02/16/2021 Influenza Vaccine (#1) 2025 2, 09/20/2021, 06/08/2020, Additional history exists Colon Cancer Screening (Colonoscopy) 2025 Pneumococcal Vaccine Aged Out No long er eligible based on patient's age to complete this topic RSV Ped < 20 months Aged Out No longe r eligible based on patient's age to complete this topic Care Teams Operations Technician Relationship Specialty Start Date End Date Negin Patel MD [address] [place] [phone] PCP - General Internal Medicine 03/20/24
--- OUTSIDE RECORDS SUMMARY | 2025-07-02 11:29 | XMS_ITS | Clinical Summary ---
Author Organization [facility] Address [address] [place] [address] Care Team Providers Care Automatic Chief Name Role Phone Pcp, No Primary Care [...] series) 1999 COVID-19 Vaccine (2023-2 5 season) 2025 HPV Vaccines (No Doses Required) Completed Pneumococcal Vaccine: Pediat yassine (0-5 Years) and At-Risk Patients (6 to 49 Years) Aged Out No longer eligible b ased on patient's age to complete this topic Care Teams Automatic Chief Relationship Specialty Start Date End Date Pcp, No [address] [place] [address] PCP - General 11/19/20
--- OUTSIDE RECORDS SUMMARY | 2025-07-02 11:29 | XMS_ITS | Clinical Summary ---
Author Organization [facility] Address [address] [place] [address] Phone Care Team Providers Care Radiation Oncology Manager Name Role Phone Negin Patel MD Primary Care Provider [phone] Allergies Active Allergy Reactions Criticality Noted Date Comments Butalbital-Acetaminoph en-Caff Nausea And Vomiting High 06/26/2009 Kiwi (Actinidia Chinensis) High 03/05/2020 Other Reaction(s): Hives/Urticaria Latex Swelling High 12/04/2008 Naproxen High 01/25/2017 Hives Other High 07/02/2024 FISH (GNP FISH) Hives/Urticaria, Nausea and Vomiting salmon only 07/27/09/ per pt Shellfish Containing Products High 03/05/2020 Other Reaction(s): Hives/Urticaria scallop Sulfamethoxazole-Trime thoprim Shortness of breath High 05/05/2009 Other Reaction(s): Hives/Urticaria Had Bactrim DS x 4 pills. Medications cetirizine (ZyrTEC) 10 mg tablet TAKE 1 TABLET BY MOUTH TWICE A DAY 4 Active cholecalciferol (VITAMIN D-3) 1,250 mcg (50,000 unit) capsule TAKE 1 CAPSULE BY MOUTH ONE TIME PER WEEK 4 Active SUMAtriptan (IMITREX) 50 mg tablet May repeat dose once after 2 hours, if needed. 4 Active nystatin-triamci nolone (MYCOLOG II) ointment Apply a thin layer to affected area twice daily x 2 weeks, then daily 4 Active betamethasone, augmented, (DIPROLENE-AF) 0.05 % cream Apply locally twice a day 4 Active ergocalciferol (VITAMIN D-2) 1,250 mcg (50,000 unit) capsule Take 1 Capsule by mouth once a week. 2 Active EPINEPHrine (EpiPen 2-Walt) 0.3 mg/0.3 mL injection 2 Active etonogestreL-eth inyl estradioL (NUVARING) 0.12-0.015 mg/24 hr vaginal ring Insert one ring, leave in for 3 weeks then remove and discard. Leave out 1 week, then repeat with new ring 4 Active clobetasoL (TEMOVATE) 0.05 % cream Apply 1-2 times a day x 2 weeks. Do not apply tp face or genital area. 0 Active betamethasone dipropionate (DIPROSONE) 0.05 % cream APPLY SPARINGLY TWICE A DAY TO AFFECTED AREAS ON SCALP FOR 1 WEEK AND THEN WAIT 1 WEEK BEFORE RESTARTING CYCLE NEEDED 30 g 1 5 Active hydrOXYzine pamoate (VISTARIL) 25 mg capsule Take 1 capsule (25 mg total) by mouth at bedtime as needed for itching. 30 capsule 2 5 Active Additional Information Patient not taking.Reported on 03/31/2025 meclizine (ANTIVERT) 25 mg tablet Take 1 tablet (25 mg total) by mouth 2 (two) times a day. 30 tablet 5 03/20/20 26 Active phentermine 37.5 mg capsuleIndicatio ns:Over weight Take 1 capsule (37.5 mg total) by mouth 1 (one) time each day before breakfast. Max Daily Amount: 37.5 mg 30 each 2 5 08/11/20 25 Active Active Problems Problem Noted Date Diagnosed Date Palpitations 03/28/2025 Cubital tunnel syndrome on right 12/27/2023 Overweight (BMI 25.0-29.9) 09/07/2023 Right lateral epicondylitis 07/18/2023 Lichen sclerosus 12/20/2022 Overview (07/02/2024): Last Assessment & Plan: Reviewed findings with patient. I counseled her that findings are consistent with lichen sclerosus given architectural changes and subdermal hemorrhage on the left. I explained this is likely an autoimmune inflammatory condition and that the mainstay of therapy is use of maintenance topical steroid. I explained that women with lichen sclerosus are at about a 5 fold increased risk of SCC over the general population. Explained that the purpose of the steroid is to prevent symptoms, further scarring, and squamous cell cancer of the vulva. I also explained the importance of regular follow up to ensure she has no evidence of precancerous or cancerous changes and that she is not having side effects from her medication. I reviewed areas of application and amount of medication to use. She voiced understanding. She was given [facility] information re: LS today and will call with any questions. She will start Mycolog nightly during menses and MWF other weeks. 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 Celiac disease 03/02/2010 GERD (gastroesophageal reflux disease) 8 Encounters Date Type Department Care Team Description 07/01/2025 Telephone Obstetrics [facility]necology [facility] [address] [place] [phone] Jessenia Coles CNM 06/19/2025 9:44 AM EDT - 06/19/2025 11:59 PM EDT Hospital Encounter Ultrasound - [facility] [address] [facility] [place] [phone] Irregular menstrual cycle Discharge Disposition: Home or Self Care 06/19/2025 Results Follow-Up Obstetrics and Gynecology - [facility] [address] [place] [address] Jessenia Coles CNM 06/17/2025 10:45 AM EDT [facility] [address] [place] [address] Jessenia Coles CNM Screen for STD (sexually transmitted disease) (Primary Dx); Irregular menstrual cycle 06/17/2025 Results Follow-Up Internal Medicine - [place] [address] [facility] [address] [place] [phone] Negin Patel MD 06/06/2025 Telephone [facility] - [facility] [address] [facility] [address] [place] [address] Ny Flores MD 05/20/2025 Telephone [facility] - [facility] [address] [facility] [address] [place] [address] Ny Flores MD 2025 11:45 AM EDT Office Visit Bariatric Surgery - [place] [address] [facility] [address] [place] [phone] Clay Ibarra MD Over weight (Primary Dx) 04/29/2025 7:00 AM EDT Ancillary Procedure [facility] - [facility] [address] [facility] [address] [place] [address] Palpitations 04/14/2025 Telephone [facility] - [facility] [address] [facility] [address] [place] [address] Ny Flores MD 04/04/2025 10:12 AM EDT - 04/04/2025 2:32 PM EDT Emergency [facility] [address] [place] [phone] Isaiah Bell MD Chest pain, unspecified type (Primary Dx) Discharge Disposition: Home or Self Care 04/04/2025 Telephone [facility] [address] [facility] [address] [place] [address] Ny Flores MD from Last 3 Months Immunizations Immunization Administration Dates Next Due Hepatitis B (Recombivax HB-D ialysis) 18yo and older 06/23/2011,05/24/2011 Influenza Quadravalent, MDCK , 0.5ml, preservative free (Flucelvax) 6mo and older 11/07/2021,06/08/2020 Influenza Quadravalent, MDCK , 0.5ml, with preservative (Flucelvax) 6mo and older 09/20/2021,06/18/2018 Influenza trivalent, 0.5mL, preservative free (Fluarix; FluLaval; Fluzone) ages 6mo and older (Afluria) 3 years and older 07/12/2017 Influenza trivalent, with preservative (Fluzone; Afluria) 6mo and older 06/06/2016,09/12/2014,06/11/2012 PPD Test 06/06/2016, 4,12/19/2012,2010 Pfizer SARS-CoV-2 COVID-19, mRNA, LNP-S, preservative free 03/09/2021 Tdap Tetanus diptheria acell ular pertussis (Boostrix; Adacel) 7yo and older 09/20/2021,05/18/2011 Surgical History Surgery Date Site/Laterality Comments SLEEVE GASTROPLASTY PROCEDURE:SLEEVE GASTROPLASTY ELBOW SURGERY PROCEDURE:ELBOW SURGERY OTHER SURGICAL HISTORY PROCEDURE:arm surgery TUBAL LIGATION PROCEDURE:TUBAL LIGATION CHOLECYSTECTOMY PROCEDURE: HISTORICAL CHOLECYSTECTOMY; COMMENT: 11/12 ESOPHAGOGASTRODUODENOSCOPY 02/18/2010 PROCEDURE: CT EGD TRANSORAL BIOPSY SINGLE/MULTIPLE; COMMENT: Esophagus-normal, gastric polyps-biopsy:fundic gland polyps, normal gastric mucosa-biopsy:mild reactive gastropathy (HPylori-), normal SB-biopsy:Celiac sprue, Mrasg StageI) OTHER SURGICAL HISTORY 12/2011 PROCEDURE: CT EXC PRTD NEHAL/PRTD GLND LAT LOBE W/O NRV DSJ; COMMENT: right COLONOSCOPY 02/18/2010 PROCEDURE: HISTORICAL COLONOSCOPY; COMMENT: Up to sigmoid, good preparation, normal ELBOW SURGERY 03/29/2018 Left PROCEDURE: HISTORICAL ELBOW SURGERY TUBAL LIGATION 2014 PROCEDURE: HISTORICAL TUBAL LIGATION CHOLECYSTECTOMY PROCEDURE: HISTORICAL CHOLECYSTECTOMY GASTRIC BYPASS 07/15/2020 PROCEDURE: CT GASTRIC RSTCV W/BYP W/SM INT RCNSTJ LIMIT ABSRPJ; COMMENT: lap vertical sleeve BREAST REDUCTION 03/2011 PROCEDURE: CT BREAST REDUCTION Medical History Medical History Date Comments GERD (gastroesophageal reflu x disease) 10/25/2007 DX:GERD (gastroesophageal re flux disease) Celiac disease 03/02/2010 DX:Celiac diseas e Vitamin D deficiency 07/03/2020 DX:Vitamin D deficiency Abnormal echocardiogram 06/08/2016 DX:Abnor mal echocardiogram; COMMENT: ?arrhythmogenic RV cardiomyopathy per [facility] endocrionology seeing patient for weight management, referral to cardiology May 2016 Chronic urticaria 03/05/2020 DX:Chronic urt icaria Food allergy 03/05/2020 DX:Food allergy Hair loss 03/05/2020 DX:Hair loss Morbid obesity (CMS/HCC V24, CMS/HCC V28) 12/07/2014 DX:Morbid obesity (HCC) Parotid tumor 06/03/2014 DX:Parotid tumor ; COMMENT: Pleomorphic adenoma right, removed 2011. Family History Medical History Relation Name Comments Other: Bariatric Surgery Brother No Known Problems Father Other: scd Father's side 1 uncle, suddenly while eating dinner, presumed [place] Other: scd Father's side 2 uncle, found on the floor by , presumed [place] Colon cancer Maternal Grandfather Diabetes Maternal Grandfather CA [place] n No Known Problems Mother Asthma Sister Breast cancer Neg Hx Ovarian cancer Neg Hx Uterine cancer Neg Hx Relation Name Status Comments Brother Father Father's side 1 Father's side 2 Maternal Grandfather Mother Sister Social History Tobacco Use Types Packs/Day Years [...] care for your loved ones. For example, children's minister or elderly care for an older adult? [...] Orientation Straight 12/04/2024 12 :28 PM EDT Obstetrics History Para Term AB IAB SAB Ectopic Multiple Livin g Live Births 3 3 3 0 0 0 3 3 Date Outcome GA Total Labor Labor/2nd/3rd Weight Sex Type Anes PTL Jocy A1 A5 Name Clin 2 Term 2722 g (96 oz) M Vag-S pont Epidur al Livin g Rubens Delivery Location:[facility] 3 Term 3175 g (112 oz) M Vag-S pont Epidur al Livin g Jerry 5 Term 3175 g (112 oz) M Vag-S pont Epidur al Livin g [place] Last Filed Vital Signs Vital Sign Reading Time Taken Comments Blood Pressure 131/83 06/17/2025 10:51 AM EDT Pulse 69 06/17/2025 10:51 AM EDT Temperature 36.6 C (97.8 F) 2025 11:12 AM EDT Respiratory Rate 14 06/17/2025 10:51 AM EDT Oxygen Saturation 100% 04/04/2025 12:59 PM EDT Inhaled Oxygen Concentration - - Weight 73.9 kg (163 lb) 06/17/2025 10:51 AM EDT Height 155 cm (5' 1.02 ) 06/17/2025 10:51 AM EDT Body Mass Index 30.77 06/17/2025 10:51 AM EDT Plan of Treatment Upcoming Encounters Date Type Department Care Team (Late st Contact Info) Description 07/25/2025 9:45 AM EST Office Visit Internal Medicine - [place] [address] [facility] [address] [place] [phone] Negin Patel MD [address] [facility] [address] [place] [phone] 08/19/2025 9:15 AM EST Office Visit Bariatric Surgery - [place] [address] [facility] [address] [place] [phone] Clay Ibarra MD [address] [place] [phone] 10/06/2025 9:00 AM EST Office Visit [facility] Oncology [address] [place] [phone] Leann Prince, DO [address] [place] [address] 10/13/2025 3:20 PM EST Office Visit Gastroenterology - [address] [facility] [address] [place] [phone] Olga Laws, PHYSICIAN GYNECOLOGIST [address] [facility] [address] [place] [address] Health Maintenance Due Date Last Done Comments Colorectal Cancer Screening: Colonoscopy 1980 HPV Vaccines (1 - 3-dose SCDM series) 2007 Breast Cancer Screening 10/06/2023 10/06/2021 Cervical Cancer Screening: HPV 11/14/2024 11/15/2019 Cholesterol Screening (Lipid Panel) 04/13/2025 04/13/2020 COVID-19 Vaccine ( - season) 2025 11/07/2021, 03/09/2021, 02/16/2021 Influenza Vaccine (#1) 2025 , 09/20/2021, 06/08/2020, Additional history exists Social Influencers of Health Screening 03/26/2026 03/26/2025 DTaP,Tdap,and Td Vaccines (4 - Td or Tdap) 12/04/2031 12/03/2021, 09/20/2021, 09/20/2021, Additional history exists RSV Immunization Adult Patients (1 - 1-dose 75+ series) 2055 Hepatitis B Vaccines Completed 12/15/2023, 06/23/2011, 05/24/2011 Depression Screening Completed 03/26/2025 HIV Screening Completed 06/17/2025, 12/19/2019 Hepatitis C Screening Completed 06/17/2025, 020 HIB Vaccines Aged Out No longer eligi ble based on patient's age to complete this topic Hepatitis A Vaccines Aged Out No long er eligible based on patient's age to complete this topic IPV Vaccines Aged Out No longer eligi ble based on patient's age to complete this topic MMR Vaccines Aged Out No longer eligi ble based on patient's age to complete this topic Meningococcal ACWY Vaccine Aged Out N o longer eligible based on patient's age to complete this topic Meningococcal B Vaccine Aged Out No l onger eligible based on patient's age to complete this topic Pneumococcal Vaccine: Pediatrics (0 to 5 Years) and At-Risk Patients (6 to 49 Years) Aged Out No longer eligible based on patient's age to complete this topic RSV Immunization Patients Under 20 months Aged Out No longer eligible based on patient's age to complete this topic Varicella Vaccines Aged Out No longer eligible based on patient's age to complete this topic Procedures Procedure Name Priority Date/Time Associated Diagnosis Comments US DUPLEX ABDOMEN/PELVIS/RETRO COMPLETE Routine 06/19/2025 10:27 AM EDT Irregular menstrual cycle US PELVIS NON OB COMPLETE W TRANSVAGINAL Routine 06/19/2025 10:27 AM EDT Irregular menstrual cycle TRICHOMONAS VAGINALIS ANTIGEN Routine 06/17/2025 11:13 AM EDT Screen for STD (sexually transmitted disease) CHLAMYDIA TRACHOMATIS AND NEISSERIA GONORRHOEAE PCR Routine 06/17/2025 11:13 AM EDT Screen for STD (sexually transmitted disease) TREPONEMA PALLIDUM ANTIBODY WITH REFLEX TO RPR AND PARTICLE AGGLUTINATION Routine 06/17/2025 11:12 AM EDT Screen for STD (sexually transmitted disease) HIV 1, 2 ANTIBODY, P24 ANTIGEN WITH REFLEX TO DIFFERENTIATION Routine 06/17/2025 11:12 AM EDT Screen for STD (sexually transmitted disease) HEPATITIS C ANTIBODY Routine 06/17/2025 11:12 AM EDT Screen for STD (sexually transmitted disease) CARDIAC FINISHER PLATE W/ CONNECTION (MCOT) Routine 04/29/2025 9:10 AM EDT Palpitations ECG ANNOTATED 04/07/2025 ECG 12-LEAD Routine 04/04/2025 1:17 PM EDT TROPONIN I HIGH SENSITIVITY Timed 04/04/2025 12:15 PM EDT ECG 12-LEAD STAT 04/04/2025 12:11 PM EDT XR CHEST 2 VIEWS STAT 04/04/2025 11:1 5 AM EDT CBC WITH AUTO DIFFERENTIAL STAT 04/04/2025 10:44 AM EDT B-TYPE NATRIURETIC PEPTIDE STAT 04/04/2025 10:44 AM EDT MAGNESIUM STAT 04/04/2025 10:44 AM EDT LIPASE STAT 04/04/2025 10:44 AM EDT COMPREHENSIVE METABOLIC PANEL STAT 04/04/2025 10:44 AM EDT CBC AND DIFFERENTIAL STAT 04/04/2025 10:44 AM EDT TROPONIN I HIGH SENSITIVITY Timed 04/04/2025 10:44 AM EDT ECG 12-LEAD STAT 04/04/2025 10:26 AM EDT SCREENING MAMMOGRAPHY BI 2-VIEW BREAST INC CAD Routine 10/06/2021 10:41 AM EST Encounter for general adult medical examination without abnormal findings LIPID PANEL Routine 04/13/2020 HM HPV Routine 11/15/2019 from Last 3 Months or Most Recently Relevant to Health Maintenance Results * US Pelvis Non OB Complete w Transvaginal (06/19/2025 10:27 AM EDT) Anatomical Region Laterality Modality Body, Pelvis Ultrasound 06/19/2025 2:26 PM EDT Impressions 06/19/2025 3:38 PM EDT Fibroid uterus. -------- FINAL REPORT -------- Dictated By: Brigitte Perkins Dictated Date: 06/19/2025 14:26 ET Assigned Physician: Brigitte Perkins Reviewed and Electronically Signed By: Brigitte Perkins Signed Date: 06/19/2025 15:38 ET Workstation ID: [id number] Transcribed By: Self Edit Transcribed Date: 06/19/2025 14:27 ET Narrative 06/19/2025 3:38 PM EDT PELVIC ULTRASOUND History: Abnormal uterine bleeding. Procedure: Real-time and color Doppler pelvic and transvaginal ultrasound. Color flow and Doppler spectral waveform analysis was also performed. Comparison: Pelvic ultrasound 06/05/2015. FINDINGS: The uterus was normal in size for the patient's age and demonstrated normal endometrial stripe echogenicity. Uterus measures 7.5 x 4.5 x 5.3 cm for a volume of 94.6 cc, contains a 1.0 x 1.0 x 1.0 cm posterior intramural fibroid. Endometrial stripe measures 5 mm. No evidence of adnexal mass seen. Transvaginal sonographic examination was performed for better evaluation of the adnexa. Normal arterial and venous waveforms on spectral Doppler analysis of both ovaries. Right ovary measures 2.0 x 1.3 x 2.3 cm for a volume of 2.1 cc. Left ovary measures 2.3 x 1.2 x 1.8 cm for a volume of 2.6 cc. No free fluid was demonstrated. Procedure Note Brigitte Perkins MD - 06/19/2025 PELVIC ULTRASOUND History: Abnormal uterine bleeding. Procedure: Real-time and color Doppler pelvic and transvaginal ultrasound.Color flow and Doppler spectral waveform analysis was also performed. Comparison: Pelvic ultrasound 06/05/2015. FINDINGS: The uterus was normal in size for the patient's age anddemonstrated normal endometrial stripe echogenicity. Uterus measures 7.5x 4.5 x 5.3 cm for a volume of 94.6 cc, contains a 1.0 x 1.0 x 1.0 cmposterior intramural fibroid. Endometrial stripe measures 5 mm. No evidence of adnexal mass seen. Transvaginal sonographic examination was performed for better evaluationof the adnexa. Normal arterial and venous waveforms on spectral Doppler analysis of bothovaries. Right ovary measures 2.0 x 1.3 x 2.3 cm for a volume of 2.1 cc. Left ovary measures 2.3 x 1.2 x 1.8 cm for a volume of 2.6 cc. No free fluid was demonstrated. IMPRESSION: Fibroid uterus. -------- FINAL REPORT -------- Dictated By: Brigitte Perkins Dictated Date: 06/19/2025 14:26 ET Assigned Physician: Brigitte Perkins Reviewed and Electronically Signed By: Brigitte Perkins Signed Date: 06/19/2025 15:38 ET Workstation ID: [id number] Transcribed By: Self Edit Transcribed Date: 06/19/2025 14:27 ET us Jessenia Coles CNM IMG US PROCEDURES Final Resu lt * US Duplex Abdomen/Pelvis/Retro Complete (06/19/2025 10:27 AM EDT) Anatomical Region Laterality Modality Body Ultrasound 06/19/2025 2:26 PM EDT Impressions 06/19/2025 3:38 PM EDT Fibroid uterus. -------- FINAL REPORT -------- Dictated By: Brigitte Perkins Dictated Date: 06/19/2025 14:26 ET Assigned Physician: Brigitte Perkins Reviewed and Electronically Signed By: Brigitte Perkins Signed Date: 06/19/2025 15:38 ET Workstation ID: [id number] Transcribed By: Self Edit Transcribed Date: 06/19/2025 14:27 ET Narrative 06/19/2025 3:38 PM EDT PELVIC ULTRASOUND History: Abnormal uterine bleeding. Procedure: Real-time and color Doppler pelvic and transvaginal ultrasound. Color flow and Doppler spectral waveform analysis was also performed. Comparison: Pelvic ultrasound 06/05/2015. FINDINGS: The uterus was normal in size for the patient's age and demonstrated normal endometrial stripe echogenicity. Uterus measures 7.5 x 4.5 x 5.3 cm for a volume of 94.6 cc, contains a 1.0 x 1.0 x 1.0 cm posterior intramural fibroid. Endometrial stripe measures 5 mm. No evidence of adnexal mass seen. Transvaginal sonographic examination was performed for better evaluation of the adnexa. Normal arterial and venous waveforms on spectral Doppler analysis of both ovaries. Right ovary measures 2.0 x 1.3 x 2.3 cm for a volume of 2.1 cc. Left ovary measures 2.3 x 1.2 x 1.8 cm for a volume of 2.6 cc. No free fluid was demonstrated. Procedure Note Brigitte Perkins MD - 06/19/2025 PELVIC ULTRASOUND History: Abnormal uterine bleeding. Procedure: Real-time and color Doppler pelvic and transvaginal ultrasound.Color flow and Doppler spectral waveform analysis was also performed. Comparison: Pelvic ultrasound 06/05/2015. FINDINGS: The uterus was normal in size for the patient's age anddemonstrated normal endometrial stripe echogenicity. Uterus measures 7.5x 4.5 x 5.3 cm for a volume of 94.6 cc, contains a 1.0 x 1.0 x 1.0 cmposterior intramural fibroid. Endometrial stripe measures 5 mm. No evidence of adnexal mass seen. Transvaginal sonographic examination was performed for better evaluationof the adnexa. Normal arterial and venous waveforms on spectral Doppler analysis of bothovaries. Right ovary measures 2.0 x 1.3 x 2.3 cm for a volume of 2.1 cc. Left ovary measures 2.3 x 1.2 x 1.8 cm for a volume of 2.6 cc. No free fluid was demonstrated. IMPRESSION: Fibroid uterus. -------- FINAL REPORT -------- Dictated By: Brigitte Perkins Dictated Date: 06/19/2025 14:26 ET Assigned Physician: Brigitte Perkins Reviewed and Electronically Signed By: Brigitte Perkins Signed Date: 06/19/2025 15:38 ET Workstation ID: [id number] Transcribed By: Self Edit Transcribed Date: 06/19/2025 14:27 ET us Jessenia Coles CNM [facility] [place] PROCEDURES Final Resu lt * Trichomonas vaginalis antigen (06/17/2025 11:13 AM EDT) Trichomonas vaginalis Negative Negative 06/17/2025 9:07 PM EDT [facility] Swab Cervix uteri structure / Unknown Non-blood Collection / Unknown 06/17/2025 11:13 AM EDT 06/17/2025 11:13 AM EDT Jessenia Coles CNM LAB MICROBIOLOGY - GENERAL O RDERABLES Final Result Performing Organization Address City/[facility]/ZIP Co de Phone Number [facility] [address] [place] [address], [place] [phone] * Chlamydia trachomatis and Neisseria gonorrhoeae molecular study (06/17/2025 11:13 AM EDT) Neisseria gonorrhoeae PCR Negative Negative LAB MOLECULAR DIAGNOSTICS METHOD 06/18/2025 10:29 AM EDT [facility] Chlamydia trachomatis PCR Negative Negative LAB MOLECULAR DIAGNOSTICS METHOD 06/18/2025 10:29 AM EDT [facility] Swab Vaginal structure / Unknown Non-blood Collection / Unknown 06/17/2025 11:13 AM EDT 06/17/2025 11:13 AM EDT Jessenia Coles CNM LAB MICROBIOLOGY - GENERAL O RDERABLES Final Result Performing Organization Address [facility] de Phone Number [facility] [address] [place] [address], [place] [phone] * Hepatitis C antibody (06/17/2025 11:12 AM EDT) Pathologist [facility] Hepatitis C Antibody Negative Negative LAB CHEMISTRY METHOD 06/17/2025 5:19 PM EDT [facility] Blood Venous blood specimen / Unknown Venipuncture / Unknown 06/17/2025 11:12 AM EDT 06/17/2025 11:12 AM EDT Jessenia Coles CNM LAB BLOOD ORDERABLES Final R esult [facility] [address] [place] [address], [place] [phone] * HIV 1,2 antibody, p24 antigen with reflex to differentiation (06/17/2025 11:12 AM EDT) HIV Combo AB/AG Negative Negative LAB CHEMISTRY METHOD 06/17/2025 5:19 PM EDT [facility] Blood Venous blood specimen / Unknown Venipuncture / Unknown 06/17/2025 11:12 AM EDT 06/17/2025 11:12 AM EDT Narrative [facility] - 06/17/2025 5:19 PM EDT This assay is a 4th generation assay allowing for earlier detection of HIV infection by detecting the presence of the HIV-1 p24 antigen as well as the traditional antibodies to HIV type 1 (including group O) and type 2. Use of a 4th generation assay is the current CDC recommendation for HIV screening. Jessenia Coles [facility] BLOOD ORDERABLES Final R esult [facility] [address] [place] [address], [place] [phone] * Treponema pallidum antibody with reflex to RPR and particle agglutination (06/17/2025 11:12 AM EDT) Pathologist [facility] T. Pallidum Antibodies Negative Negative LAB CHEMISTRY METHOD 06/17/2025 2:39 PM EDT [facility] Blood Venous blood specimen / Unknown Venipuncture / Unknown 06/17/2025 11:12 AM EDT 06/17/2025 11:12 AM EDT Jessenia Coles [facility] BLOOD ORDERABLES Final R esult [facility] [address] [place] [address], [place] [phone] * CARDIAC FINISHER PLATE W/ CONNECTION (MCOT) (04/29/2025 9:10 AM EDT) Anatomical Region Laterality Modality Cardiac Diagnost ic Impressions 05/19/2025 5:24 PM EDT 1. No significant arrhythmias. 2. Patient's symptoms correlated to normal sinus rhythm. Narrative 05/19/2025 5:24 PM EDT [facility] DIAGNOSTIC TESTING DEPARTMENT [address] [place] [address], [address] [address] TEL: FAX: TYPE OF TEST: 7 day ROCT monitor. DATES OF MONITORIN04/29/2025- 05/06/2025 REQUESTING PHYSICIAN: Ny Flores MD PRIMARY CARE PROVIDER: Negin Patel MD INDICATION: Palpitations Findings: 1. The predominant rhythm was sinus, with sinus arrhythmia. 2. The average heart rate was 72 bpm, minimum heart rate was 51 bpm, maximum heart rate was 125 bpm. 3. Total VE burden: < 0.1 % consisting of singles. 4. Total SVE burden: < 0.1 % consisting of SVE Couplet. 5. There were 6 patient triggered symptomatic events. They correlated to normal sinus rhythm. Result [facility] Ny Flores MD CV CARDIAC SERVICES PROCEDURES Final Result * ECG-Annotated (04/07/2025) Provider Onbase ECG ORDERABLES Final Result * ECG 12 lead (04/04/2025 1:17 PM EDT) Only the most recent of3 resultswithin the time period is included. Ventricular Rate ECG 60 BPM GEMUSE Atrial Rate 60 BPM GEMUSE P-R Interval 206 ms GEMUSE QRS Duration 84 ms GEMUSE Q-T Interval 434 ms GEMUSE QTc 434 ms GEMUSE P Wave [place] 43 degrees GEMUSE R [place] -11 degrees GEMUSE T [place] 17 degrees GEMUSE ECG Interpretation Normal sinus rhythm Normal ECG When compared with ECG of 04-APR-2025 12:11, (unconfirmed) No significant change was found Confirmed by LAW FALL ([id number]) on 04/05/2025 3:22:04 PM GEMUSE 04/04/2025 1:17 PM EDT 04/05/2025 3:22 PM EDT Isaiah Bell MD ECG ORDERABLES Final Result Performing Organization Address City/[facility] de Phone Number GEMUSE * Troponin I high sensitivity (04/04/2025 12:15 PM EDT) Only the most recent of2 resultswithin the time period is included. High Sensitivity Troponin I 3 <=54 ng/L LAB CHEMISTRY METHOD 04/04/2025 1:18 PM EDT [facility] Blood Venous blood specimen / Unknown Venipuncture / Unknown 04/04/2025 12:15 PM EDT 04/04/2025 12:33 PM EDT Narrative [facility] - 04/04/2025 1:18 PM EDT High levels of biotin in samples may falsely decrease hsTroponin values. Use caution when interpreting hsTroponin results in patients taking biotin who exhibit renal impairment (eGFR <60) or in patients taking more than 20 mg/day of biotin. Isaiah Bell MD LAB BLOOD ORDERABLES Final Resul t Performing Organization Address [facility] de Phone Number [facility] [address] [place] [address], * XR Chest 2 Views (04/04/2025 11:15 AM EDT) Anatomical Region Laterality Modality Body Radiographic Brigette ging 04/04/2025 11:1 6 AM EDT Impressions 04/04/2025 11:17 AM EDT No acute findings. -------- FINAL REPORT -------- Dictated By: Rikki Salguero Dictated Date: 04/04/2025 11:16 ET Assigned Physician: Rikki Salguero Reviewed and Electronically Signed By: Rikki Salguero Signed Date: 04/04/2025 11:17 ET Workstation ID: [id number] Transcribed By: Self Edit Transcribed Date: 04/04/2025 11:16 ET Narrative 04/04/2025 11:17 AM EDT PROCEDURE: PA and lateral radiographs of the chest. HISTORY: chest pain. COMPARISON: 02/02/2023. FINDINGS: Cholecystectomy clips. Lungs, pleural spaces, pulmonary vasculature, and cardiomediastinal contours are normal. Procedure Note Rikki Salguero MD - 04/04/2025 PROCEDURE: PA and lateral radiographs of the chest. HISTORY: chest pain. COMPARISON: 02/02/2023. FINDINGS: Cholecystectomy clips. Lungs, pleural spaces, pulmonary vasculature, andcardiomediastinal contours are normal. IMPRESSION: No acute findings. -------- FINAL REPORT -------- Dictated By: Rikki Salguero Dictated Date: 04/04/2025 11:16 ET Assigned Physician: Rikki Salguero Reviewed and Electronically Signed By: Rikki Salguero Signed Date: 04/04/2025 11:17 ET Workstation ID: [id number] Transcribed By: Self Edit Transcribed Date: 04/04/2025 11:16 ET Isaiah Bell MD IMG XR PROCEDURES Final Result * (ABNORMAL) CBC auto differential (04/04/2025 10:44 AM EDT) WBC 3.7(L) 4.8 - 10.8 K/mcL LAB HEMETOLOGY METHOD 04/04/2025 10:59 AM EDT [facility] RBC 4.30 3.80 - 4.80 M/mcL LAB HEMETOLOGY METHOD 04/04/2025 10:59 AM EDT [facility] Hemoglobin 11.6 11.5 - 16.0 g/dL LAB HEMETOLOGY METHOD 04/04/2025 10:59 AM EDT [facility] Hematocrit 35.7 35.0 - 47.0 % LAB HEMETOLOGY METHOD 04/04/2025 10:59 AM [facility] MCV 83.8 79.0 - 98.0 FL LAB HEMETOLOGY METHOD 04/04/2025 10:59 AM [facility] MCH 27.2 27.0 - 32.0 pcg LAB HEMETOLOGY METHOD 04/04/2025 10:59 AM [facility] MCHC 32.5 32.0 - 37.0 g/dL LAB HEMETOLOGY METHOD 04/04/2025 10:59 AM [facility] RDW 13.8 11.0 - 15.0 % LAB HEMETOLOGY METHOD 04/04/2025 10:59 AM [facility] Platelets 258 130 - 400 K/mcL LAB HEMETOLOGY METHOD 04/04/2025 10:59 AM [facility] MPV 9.2 7.0 - 11.0 FL LAB HEMETOLOGY METHOD 04/04/2025 10:59 AM [facility] NRBC 0.0 <1.0 % LAB HEMETOLOGY METHOD 04/04/2025 10:59 AM [facility] NRBC Absolute 0.00 <0.10 K/mcL LAB HEMETOLOGY METHOD 04/04/2025 10:59 AM [facility] Neutrophils Relative 63.1 % LAB HEMETOLOGY METHOD 04/04/2025 10:59 AM [facility] Lymphocytes Relative 21.7 % LAB HEMETOLOGY METHOD 04/04/2025 10:59 AM [facility] Monocytes Relative 8.7 % LAB HEMETOLOGY METHOD 04/04/2025 10:59 AM [facility] Eosinophils Relative 5.4 % LAB HEMETOLOGY METHOD 04/04/2025 10:59 AM EDT [facility] Basophils Relative 0.8 % LAB HEMETOLOGY METHOD 04/04/2025 10:59 AM EDT [facility] Immature Granulocytes Relative 0.3 % LAB HEMETOLOGY METHOD 04/04/2025 10:59 AM EDT [facility] Neutrophils Absolute 2.33 1.50 - 7.00 K/mcL LAB HEMETOLOGY METHOD 04/04/2025 10:59 AM EDT [facility] Lymphocytes Absolute 0.80(L) 1.00 - 5.00 K/mcL LAB HEMETOLOGY METHOD 04/04/2025 10:59 AM EDT [facility] Monocytes Absolute 0.32 0.20 - 1.00 K/mcL LAB HEMETOLOGY METHOD 04/04/2025 10:59 AM EDT [facility] Eosinophils Absolute 0.20 0.00 - 0.50 K/mcL LAB HEMETOLOGY METHOD 04/04/2025 10:59 AM EDT [facility] Basophils Absolute 0.03 0.00 - 0.20 K/mcL LAB HEMETOLOGY METHOD 04/04/2025 10:59 AM EDT [facility] Immature Granulocytes Absolute 0.01 0.00 - 0.03 K/mcL LAB HEMETOLOGY METHOD 04/04/2025 10:59 AM EDT [facility] Blood Venous blood specimen / Unknown Venipuncture / Unknown 04/04/2025 10:44 AM EDT 04/04/2025 10:48 AM EDT us Isaiah Bell MD LAB BLOOD ORDERABLES Final Resul t [facility] [address] [place] [address], * B-type natriuretic peptide (04/04/2025 10:44 AM EDT) BNP 5 <=100 pcg/mL LAB CHEMISTRY METHOD 04/04/2025 11:39 AM EDT [facility] Blood Venous blood specimen / Unknown Venipuncture / Unknown 04/04/2025 10:44 AM EDT 04/04/2025 10:48 AM EDT us Isaiah Bell MD LAB BLOOD ORDERABLES Final Resul t [facility] [address] [place] [address], [place] [phone] * Magnesium (04/04/2025 10:44 AM EDT) Pathologist [facility] Magnesium 1.9 1.9 - 2.6 mg/dL LAB CHEMISTRY METHOD 04/04/2025 11:38 AM EDT [facility] Blood Venous blood specimen / Unknown Venipuncture / Unknown 04/04/2025 10:44 AM EDT 04/04/2025 10:48 AM EDT us Isaiah Bell MD LAB BLOOD ORDERABLES Final Resul t Performing Organization Address [facility]/ZIP Co de Phone Number [facility] [address] [place] [address], [place] [phone] * Lipase (04/04/2025 10:44 AM EDT) Pathologist [facility] Lipase 29 13 - 75 unit/L LAB CHEMISTRY METHOD 04/04/2025 11:38 AM EDT [facility] Blood Venous blood specimen / Unknown Venipuncture / Unknown 04/04/2025 10:44 AM EDT 04/04/2025 10:48 AM EDT us Isaiah Bell MD LAB BLOOD ORDERABLES Final Resul t [facility] [address] [place] [address], [place] [phone] * (ABNORMAL) Comprehensive metabolic panel (04/04/2025 10:44 AM EDT) Sodium 138 133 - 145 mmol/L LAB CHEMISTRY METHOD 04/04/2025 11:38 AM [facility] Potassium 3.4(L) 3.5 - 5.5 mmol/L LAB CHEMISTRY METHOD 04/04/2025 11:38 AM [facility] Chloride 106 96 - 110 mmol/L LAB CHEMISTRY METHOD 04/04/2025 11:38 AM [facility] CO2 26 21 - 32 mmol/L LAB CHEMISTRY METHOD 04/04/2025 11:38 AM [facility] Anion Gap 6 3 - 11 LAB CHEMISTRY METHOD 04/04/2025 11:38 AM [facility] Glucose 89 70 - 100 mg/dL LAB CHEMISTRY METHOD 04/04/2025 11:38 AM [facility] BUN 17 5 - 25 mg/dL LAB CHEMISTRY METHOD 04/04/2025 11:38 AM [facility] Creatinine 0.68 0.50 - 1.10 mg/dL LAB CHEMISTRY METHOD 04/04/2025 11:38 AM [facility] eGFR 110 >=60 mL/min/1. 73m2 LAB CHEMISTRY METHOD 04/04/2025 11:38 AM [facility] Comment:Calculation based on the Chronic Kidney Disease Epidemiology Collaboration (CKD-EPI) equation refit without adjustment for race. BUN/Creatinine Ratio 25.0 LAB CHEMISTRY METHOD 04/04/2025 11:38 AM [facility] Calcium 9.1 8.5 - 10.5 mg/dL LAB CHEMISTRY METHOD 04/04/2025 11:38 AM [facility] AST (SGOT) 17 10 - 42 unit/L LAB CHEMISTRY METHOD 04/04/2025 11:38 AM [facility] ALT (SGPT) 19 10 - 60 unit/L LAB CHEMISTRY METHOD 04/04/2025 11:38 AM EDT [facility] Alkaline Phosphatase 84 42 - 121 unit/L LAB CHEMISTRY METHOD 04/04/2025 11:38 AM EDT [facility] Total Protein 6.7 6.0 - 8.0 g/dL LAB CHEMISTRY METHOD 04/04/2025 11:38 AM EDT [facility] Albumin 3.7 3.2 - 5.0 g/dL LAB CHEMISTRY METHOD 04/04/2025 11:38 AM EDT [facility] Total Bilirubin 0.8 0.0 - 1.4 mg/dL LAB CHEMISTRY METHOD 04/04/2025 11:38 AM EDT [facility] Blood Venous blood specimen / Unknown Venipuncture / Unknown 04/04/2025 10:44 AM EDT 04/04/2025 10:48 AM EDT us Isaiah Bell MD LAB BLOOD ORDERABLES Final Resul t [facility] [address] [place] [address], * SCREENING MAMMOGRAPHY BI 2-VIEW BREAST INC CAD (10/06/2021 10:41 AM EST) Anatomical Region Laterality Modality Radiographic Brigette ging 06/08/2020 1:59 PM EDT Narrative 10/06/2021 5:08 PM EST This is a summary report. The complete report is available in the patient's medical record. If you cannot access the medical record, please contact the sending organization for a detailed fax or copy. BILATERAL 2D and 3D DIGITAL SCREENING MAMMOGRAM History: Routine screening. No current breast complaints. Comparison: Baseline Technique: Bilateral full-field digital 2D and 3D mammography was performed using standard CC and MLO projections CAD was used to evaluate this mammogram. Findings: Density: There are scattered areas of fibroglandular density-B RIGHT: No suspicious masses, groups of microcalcification or areas of architectural distortion identified. Stable typically benign parenchymal asymmetries LEFT: No suspicious masses, groups of microcalcifications or areas of architectural distortion identified. Stable typically benign parenchymal asymmetries IMPRESSION: : 1. No mammographic evidence of malignancy. BI-RADS Category 2 benign findings Recommendation: Routine annual screening mammography is recommended Procedure Note Franki Douglass MD - 08/30/2022 This is a summary report. The complete report is available in thepatient's medical record. If you cannot access the medical record, pleasecontact the sending organization for a detailed fax or copy. BILATERAL 2D and 3D DIGITAL SCREENING MAMMOGRAM History: Routine screening. No current breast complaints. Comparison: Baseline Technique: Bilateral full-field digital 2D and 3D mammography wasperformed using standard CC and MLO projections CAD was used to evaluate this mammogram. Findings: Density: There are scattered areas of fibroglandular density-B RIGHT: No suspicious masses, groups of microcalcification or areas ofarchitectural distortion identified. Stable typically benign parenchymalasymmetries LEFT: No suspicious masses, groups of microcalcifications or areas ofarchitectural distortion identified. Stable typically benign parenchymalasymmetries IMPRESSION: : 1. No mammographic evidence of malignancy. BI-RADS Category 2 benign findings Recommendation: Routine annual screening mammography is recommended Sada ROGERS IMG XR PROCEDURES Final Result * Lipid panel (04/13/2020) Pathologist [facility] LDL/HDL Ratio 3 0 - 4 Triglycerides 57 0 - 150 mg/dL Cholesterol 148 0 - 200 mg/dL HDL 43 >=40 mg/dL LDL Cholesterol 94 0 - 100 mg/dL Blood Venous blood specimen / Unknown Historical Provider LAB BLOOD ORDERABLES Nayana l Result * Cervical Cancer Screening: HPV (11/15/2019) Pathologist [facility] Cervical Cancer Screening: HPV negative, abstracted Historical Provider HEALTH MAINTENANCE Final Result from Last 3 Months or Most Recently Relevant to Health Maintenance Insurance [facility] Advance Directives Documents on File Type Date Recorded Patient Automobile Repair Service Estimator Expl anation Health Care Decision (hx) 04/05/2024 AD ANNE DIRECTIVE Health Care Decision (hx) 04/05/2024 AD ANNE DIRECTIVE Health Care Decision (hx) 04/05/2024 AD ANNE DIRECTIVE Health Care Decision (hx) 04/05/2024 AD ANNE DIRECTIVE Care Teams Radiation Oncology Manager Relationship Specialty Start Date End Date Negin Patel MD [address] [place] [address] [address] [place] [phone] PCP - General Internal Medicine 04/08/22
[2025-07-02 13:14] LABS: Appearance Urine Clear; Glucose Urine UA Negative (Negative); PH 6.0 (5.0-9.0); Specific Gravity - Urine >= 1.030 (1.005-1.025); UMIC TRIGGER UACC YES
[2025-07-02 13:33] LABS: UACC Culture Trigger YES
== END 2025-07-02 09:45 | disposition home or self-care (01) ==
LOC: HO.HHCL 09:44
PROVIDERS: PCP Internal Medicine; Visit Provider Advanced Practice Midwife
DX: R39.15 Urgency of urination (principal); R35.0 Frequency of micturition; R31.9 Hematuria, unspecified
CPT/HCPCS: 81001; 81003; 87086

== ENCOUNTER 2025-07-08 11:00 | Outpatient (REF) | payer OTHER, SELFPAY ==
--- OUTSIDE RECORDS SUMMARY | 2025-07-08 14:11 | XMS_ITS | Clinical Summary ---
Author Organization [facility] Address [address] [place] [address] Care Team Providers Care Dehydrator Tender Name Role Phone Negin Patel MD Primary Care Provider [phone] Allergies Active Allergy Reactions Criticality Noted Date Comments Sulfamethoxazole-Trimethoprim 2023 Caknjjhtvx-Lqvq-Xbsfwxmr Nausea And Vomiting Kiwi Extract Hives 03/05/2020 [...] age to complete this topic Care Teams Dehydrator Tender Relationship Specialty Start Date End Date Negin Patel MD [address] [place] [phone] PCP - General Internal Medicine 03/20/24
--- OUTSIDE RECORDS SUMMARY | 2025-07-08 14:11 | XMS_ITS | Clinical Summary ---
Author Organization [facility] Address [address] [place] [address] Phone Care Team Providers Care University Intern Name Role Phone Negin Patel MD Primary Care Provider [phone] Allergies Active Allergy Reactions Criticality Noted Date [...] use. She voiced understanding. She was given [facility] information re: LS today and will call with any questions. She will start Mycolog nightly during menses and MWF other weeks. 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 Celiac disease 03/02/2010 GERD (gastroesophageal reflux disease) 8 Encounters Date Type Department Care Team Description 07/08/2025 Results Follow-Up Obstetrics and Gynecology [facility] [place] [address] [place] [address] Olga Hamilton MA 07/08/2025 Telephone [facility] - [facility] [address] [place] [phone] Ny Flores MD 07/01/2025 Telephone Obstetrics and Gynecology - [place] [address] [place], [place] [phone] Jessenia Coles CNM 06/19/2025 9:44 AM EDT - 06/19/2025 11:59 PM EDT Hospital Encounter Ultrasound - [facility] [address] [place], [place] [phone] Irregular menstrual cycle Discharge Disposition: Home or Self Care 06/19/2025 Results Follow-Up Obstetrics [facility] Gynecology - [facility] [address] [place], [place] [phone] Jessenia Coles CNM 06/17/2025 10:45 AM EDT Office Visit Obstetrics and Gynecology - [place] [address] [place], [place] [address]nn[address] [place], [place] [phone] Jessenia Coles CNM Screen for STD (sexually transmitted disease) (Primary Dx); Irregular menstrual cycle 06/17/2025 Results Follow-Up Internal Medicine - [place] [address] [place] [address] Negin Patel MD 06/06/2025 Telephone [facility] - [address] [place] [address] Ny Flores MD 05/20/2025 Telephone [facility] Cardiology [facility] [address] [place] [address] Ny Flores MD 2025 11:45 AM EDT Office Visit Bariatric Surgery - [place] [address] [place] [address] Clay Ibarra MD Over weight (Primary Dx) 04/29/2025 7:00 AM EDT Ancillary Procedure [facility] Cardiology [facility] [address] [place] [address] Palpitations 04/14/2025 Telephone [facility] Cardiology [facility] [address] [place] [address] Ny Flores MD from Last 3 Months [...] HISTORICAL CHOLECYSTECTOMY; COMMENT: 11/12 ESOPHAGOGASTRODUODENOSCOPY 02/18/2010 PROCEDURE: NY EGD TRANSORAL BIOPSY SINGLE/MULTIPLE; COMMENT: Esophagus-normal, gastric polyps-biopsy:fundic gland polyps, normal gastric mucosa-biopsy:mild reactive gastropathy (HPylori-), normal SB-biopsy:Celiac sprue, Mrasg StageI) OTHER SURGICAL HISTORY 12/2011 PROCEDURE: NY EXC PRTD NEHAL/PRTD GLND LAT LOBE W/O NRV DSJ; COMMENT: right COLONOSCOPY 02/18/2010 PROCEDURE: HISTORICAL COLONOSCOPY; COMMENT: Up to sigmoid, good preparation, normal ELBOW SURGERY 03/29/2018 Left PROCEDURE: HISTORICAL ELBOW SURGERY TUBAL LIGATION 2014 PROCEDURE: HISTORICAL TUBAL LIGATION CHOLECYSTECTOMY PROCEDURE: HISTORICAL CHOLECYSTECTOMY GASTRIC BYPASS 07/15/2020 PROCEDURE: [place] GASTRIC RSTCV W/BYP W/SM INT RCNSTJ LIMIT ABSRPJ; COMMENT: lap vertical sleeve BREAST REDUCTION 03/2011 PROCEDURE: [place] BREAST REDUCTION Medical History Medical History Date Comments GERD (gastroesophageal reflu x disease) 10/25/2007 DX:GERD (gastroesophageal re flux disease) Celiac disease 03/02/2010 DX:Celiac diseas e Vitamin D deficiency 07/03/2020 DX:Vitamin D deficiency Abnormal echocardiogram 06/08/2016 DX:Abnor mal echocardiogram; COMMENT: ?arrhythmogenic RV cardiomyopathy per [facility] endocrionology seeing patient for weight management, [...] 1 uncle, suddenly while eating dinner, presumed [place] Other: scd Father's side 2 uncle, found on the floor by , presumed [place] Colon cancer Maternal Grandfather Diabetes Maternal Grandfather [place] n No Known Problems Mother Asthma Sister [...] do you feel lonely or isolated from ose around you? Never 03/26/2025 Food Risk [...] care for your loved ones. For example, early childhood aide classroom or elderly care for an older adult? [...] pont Epidur al Livin g Rubens Delivery Location:[facility] 3 Term 3175 g (112 oz) M [...] AM EST Office Visit Internal Medicine - [place] [address] [facility] [address] [place] [phone] Negin Patel MD [address] [place] [phone] 08/19/2025 9:15 AM EST Office Visit Bariatric Surgery - [place] [address] [facility] [address] [place] [phone] Clay Ibarra MD [address] [place] [address] 10/06/2025 9:00 AM EST Office Visit [facility] Hematology Oncology [address] [place] [phone] Leann Prince DO [address] [place] [address] 10/13/2025 3:20 PM EST Office Visit Gastroenterology - [address] [place] [address] Olga Laws, VERNA [address] [place] [address] Health Maintenance Due Date Last Done Comments [...] Procedure Name Priority Date/Time Associated Diagnosis Comments CULTURE URINE Routine 07/03/2025 11:25 AM EDT URINALYSIS WITH MICROSCOPIC Routine 07/02/2025 12:27 PM EDT US DUPLEX ABDOMEN/PELVIS/RETRO COMPLETE Routine 06/19/2025 10:27 [...] Screen for STD (sexually transmitted disease) CARDIAC FARMWORKER BULBS W/ CONNECTION (MCOT) Routine 04/29/2025 9:10 AM EDT Palpitations ECG ANNOTATED 04/07/2025 SCREENING MAMMOGRAPHY BI 2-VIEW BREAST INC CAD Routine 10/06/2021 10:41 AM EST Encounter for general adult medical examination without abnormal findings LIPID PANEL Routine 04/13/2020 HM HPV Routine 11/15/2019 from Last 3 Months or Most Recently Relevant to Health Maintenance Results * Culture urine (07/03/2025 11:25 AM EDT) Urine Urine specimen obtained by clean catch procedure / Unknown Jessenia Coles [facility] MICROBIOLOGY - GENERAL O RDERABLES Final Result * Urinalysis with microscopic (07/02/2025 12:27 PM EDT) Urine Urine specimen obtained by clean catch procedure / Unknown Jessenia Coles [facility] URINE ORDERABLES Final R esult * US Pelvis Non OB Complete w Transvaginal (06/19/2025 10:27 AM EDT) Anatomical Region Laterality Modality Body, Pelvis Ultrasound 06/19/2025 2:26 PM EDT Impressions 06/19/2025 3:38 PM EDT Fibroid uterus. -------- FINAL REPORT -------- Dictated By: Brigitte Perkins Dictated Date: 06/19/2025 14:26 ET Assigned Physician: Brigitte Perkins Reviewed and Electronically Signed By: Brigitte Perkins Signed Date: 06/19/2025 15:38 ET Workstation ID: [id number] Transcribed By: Self Edit Transcribed Date: 06/19/2025 [...] Signed Date: 06/19/2025 15:38 ET Workstation ID: [id number] Transcribed By: Self Edit Transcribed Date: 06/19/2025 14:27 ET us Jessenia Coles CNM [facility] US PROCEDURES Final Resu lt * US Duplex Abdomen/Pelvis/Retro Complete (06/19/2025 10:27 AM EDT) Anatomical Region Laterality Modality Body Ultrasound 06/19/2025 2:26 PM EDT Impressions 06/19/2025 3:38 PM EDT Fibroid uterus. -------- FINAL REPORT -------- Dictated By: Brigitte Perkins Dictated Date: 06/19/2025 14:26 ET Assigned Physician: Brigitte Perkins Reviewed and Electronically Signed By: Brigitte Perkins Signed Date: 06/19/2025 15:38 ET Workstation ID: [id number] Transcribed By: Self Edit Transcribed Date: 06/19/2025 [...] Signed Date: 06/19/2025 15:38 ET Workstation ID: [id number] Transcribed By: Self Edit Transcribed Date: 06/19/2025 14:27 ET Jessenia oCles CNM IMG US PROCEDURES Final Resu lt * Trichomonas vaginalis antigen (06/17/2025 11:13 AM EDT) Trichomonas vaginalis Negative Negative 06/17/2025 9:07 PM EDT [facility] Swab Cervix uteri structure / Unknown Non-blood Collection / Unknown 06/17/2025 11:13 AM EDT 06/17/2025 11:13 AM EDT Jessenia Coles CNM LAB MICROBIOLOGY - GENERAL O RDERABLES Final Result [facility] [address] [place] [address], * Chlamydia trachomatis and Neisseria gonorrhoeae molecular study (06/17/2025 11:13 AM EDT) Neisseria gonorrhoeae PCR Negative Negative LAB MOLECULAR DIAGNOSTICS METHOD 06/18/2025 10:29 AM EDT [facility] Chlamydia trachomatis PCR Negative Negative LAB MOLECULAR DIAGNOSTICS METHOD 06/18/2025 10:29 AM EDT [facility] Swab Vaginal structure / Unknown Non-blood Collection / Unknown 06/17/2025 11:13 AM EDT 06/17/2025 11:13 AM EDT Jessenia Coles CNM LAB MICROBIOLOGY - GENERAL O RDERABLES Final Result Performing Organization Address [facility]/ZIP Co de Phone Number [facility] [address] [place] [address], [place] [phone] * Hepatitis C antibody (06/17/2025 11:12 AM EDT) Hepatitis C Antibody Negative Negative LAB CHEMISTRY METHOD 06/17/2025 5:19 PM EDT [facility] Blood Venous blood specimen / Unknown Venipuncture / Unknown 06/17/2025 11:12 AM EDT 06/17/2025 11:12 AM EDT Jessenia Coles CNM LAB BLOOD ORDERABLES Final R esult Performing Organization Address City/[facility]/ZIP Co de Phone Number [facility] [address] [place] [address], [place] [phone] * HIV 1,2 antibody, p24 antigen with reflex to differentiation (06/17/2025 11:12 AM EDT) HIV Combo AB/AG Negative Negative LAB CHEMISTRY METHOD 06/17/2025 5:19 PM EDT [facility] Blood Venous blood specimen / Unknown Venipuncture / Unknown 06/17/2025 11:12 AM EDT 06/17/2025 11:12 AM EDT Narrative [facility] - 06/17/2025 5:19 PM EDT This assay is a 4th generation assay allowing for earlier detection of HIV infection by detecting the presence of the HIV-1 p24 antigen as well as the traditional antibodies to HIV type 1 (including group O) and type 2. Use of a 4th generation assay is the current CDC recommendation for HIV screening. Jessenia Coles [facility] BLOOD ORDERABLES Final R esult Performing Organization Address [facility]/ZIP Co de Phone Number [facility] [address] [place] [address], [place] [phone] * Treponema pallidum antibody with reflex to RPR and particle agglutination (06/17/2025 11:12 AM EDT) T. Pallidum Antibodies Negative Negative LAB CHEMISTRY METHOD 06/17/2025 2:39 PM EDT [facility] Blood Venous blood specimen / Unknown Venipuncture / Unknown 06/17/2025 11:12 AM EDT 06/17/2025 11:12 AM EDT [facility] LAB BLOOD ORDERABLES Final R esult Performing Organization Address [facility] de Phone Number [facility] [address] [place] [address], [place] [phone] * CARDIAC FARMWORKER BULBS W/ CONNECTION (MCOT) (04/29/2025 9:10 AM EDT) Anatomical Region Laterality Modality Cardiac Diagnost ic Impressions 05/19/2025 5:24 PM EDT 1. No significant arrhythmias. 2. Patient's symptoms correlated to normal sinus rhythm. Narrative 05/19/2025 5:24 PM EDT [facility] DIAGNOSTIC TESTING DEPARTMENT [address] [place] [id number] TEL: FAX: TYPE OF TEST: 7 day [...] events. They correlated to normal sinus rhythm. Ny Flores MD CV CARDIAC SERVICES PROCEDURES Final Result * ECG-Annotated (04/07/2025) Provider Onbase ECG ORDERABLES Final Result * SCREENING MAMMOGRAPHY BI 2-VIEW BREAST INC [...] Recommendation: Routine annual screening mammography is recommended us Sada Yuriy ROGERS IMG XR PROCEDURES Final Result * Lipid panel (04/13/2020) Pathologist [facility] LDL/HDL Ratio 3 0 - 4 Triglycerides 57 0 - 150 mg/dL Cholesterol 148 0 - 200 mg/dL HDL 43 >=40 mg/dL LDL Cholesterol 94 0 - 100 mg/dL Blood Venous blood specimen / Unknown Historical Provider LAB BLOOD ORDERABLES Nayana l Result * Cervical Cancer Screening: HPV (11/15/2019) Pathologist [facility] Cervical Cancer Screening: HPV negative, abstracted Historical Provider HEALTH MAINTENANCE Final Result from Last 3 Months or Most Recently Relevant to Health Maintenance Insurance [facility] Advance Directives Documents on File Type Date Recorded 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
--- OUTSIDE RECORDS SUMMARY | 2025-07-08 14:11 | XMS_ITS | Clinical Summary ---
Author Organization [facility] Address [address] [place] [phone] Phone Care Team Providers Care Instrument And Control Technician Name Role Phone Negin Patel MD Primary Care Provider [phone] Allergies Active Allergy Reactions Criticality Noted Date [...] topic Medical Devices Not on file Insurance [employer]CO [facility] sambaashY ALLANCE [facility] ALLANCE ACO [employer] Advance Directives For more information, please contact: [phone] (9AM - 5PM [place], Monday-Monday) * Full Code (Latest Code Status on File) Date Activated Date Inactivated Comments 08/29/2022 8:13 AM Question Answer Comments Code Status Confirmed With: Patient Care Teams Instrument And Control Technician Relationship Specialty Start Date End Date Negin Patel MD [address] [address] PCP - General Internal Medicine 05/17/22 Additional Source Comments The information contained in this document represents components of the legal health record. It is not the complete legal health record.[facility]
--- OUTSIDE RECORDS SUMMARY | 2025-07-08 14:12 | XMS_ITS | Encounter Summary ---
Author Organization [facility] Address [address] [place] [address] Phone Care Team Providers Care Racing Mechanic Name Role Phone Negin Patel MD Primary Care Provider [phone] Encounter Details Date Type Department Care Team (Late st Contact Info) Description 08/29/2022 Procedure Pass OR Admitting Dept - Virtual Department [address] [place] [address] Social History Tobacco Use Types Packs/Day Years [...] on filedocumented in this encounter Care Teams Racing Mechanic Relationship Specialty Start Date End Date Negin Patel MD [address] [phone] PCP - General Internal Medicine 05/17/22 documented as of this encounter Additional Source Comments The information contained in this document represents components of the legal health record. It is not the complete legal health record.[facility]
--- OUTSIDE RECORDS SUMMARY | 2025-07-08 14:12 | XMS_ITS | Encounter Summary ---
Author Organization [facility] [place] [address] Care Team Providers Care Sky Cap Name Role Phone Negin Patel MD Primary Care Provider [phone] Reason for Visit * Reason Onset Date Comments Loss of Consciousness 07/08/2025 Chest Pain 07/08/2025 Encounter Details Date Type Department Care Team (Late st Contact Info) Description 07/08/2025 Telephone [facility] Cardiology Associates [facility] [address] [place] [address] Ny Flores MD [address] [place] [address] [address] [place] [address] Social History Tobacco Use Types Packs/Day Years [...] care for your loved ones. For example, infant childcare provider or elderly care for an older adult? [...] documented in this encounter Progress Notes * Zohaib Uribe RN - 07/08/2025 10:54 AM EDTAddended by: ZOHAIB URIBE on: 07/08/2025 10:54 AM Modules accepted: Orders * Zohaib Uribe RN - 07/08/2025 10:42 AM EDT CBC and CMP lab orders entered and faxed successfully to [facility] Reviewed JL recommendations with pt. Pt now requesting lab work to go to [facility] satellite lab FAX # [phone] Faxed successfully * Prateek Fagan NP - 07/08/2025 10:21 AM EDT We can update a CBC and a CMP. Patient should likely increase her water intake to closer to 80 ounces per day. Should utilize compression stockings. Should try to intake closer to 4000 mg of sodium per day, per Dr. Santiago's notes. Change positions slowly. Let us know if this helps. * Zohaib Uribe RN - 07/08/2025 9:31 AM EDT [facility] 7.21.25 Spoke with pt, states she felt faint on Monday and Monday [place] palps, felt HR increase then felt HR decrease had ringing in her ears, was pale and though shewould pass out. Pt did not pass out Pt does not have the capability to measure HR. Denies SOB, CP, PND, Orthopnea Drinks at least 60 ounces of water daily, no alcohol , no caffeine. No new or missed meds, no recent illness. Pt is stressed going through tough divorce Pt works at [employer] she can get lab work there if any lab work is needed Pt aware to seek emergent care for s/s that worsen or are not improved. * Serena Ramsey - 07/08/2025 9:10 AM EDT Patient states Monday she experienced heart palpitations. She felt ringing in her ear and dizziness. Patient states she felt faint. Yesterday she felt her heart rate dropped while feeling faint, ringing in her ear and feeing lightheaded. She felt pinching chest pain in the middle of her chest. Please advise. Best call back number is [phone]. Work number is [phone] documented in this encounter Plan of Treatment Upcoming Encounters Date Type Department Care Team (Late st Contact Info) Description 07/25/2025 9:45 AM EST Office Visit Internal Medicine - [address] [place] [address] Negin Patel MD [address] [place] [phone] 08/19/2025 9:15 AM EST Office Visit Bariatric Surgery - [place] 175 [facility] [address] [place] [phone] Clay Ibarra MD [address] [place] [address] 10/06/2025 9:00 AM EST Office Visit Hematology Oncology [address] [place] [phone] Leann Prince, DO [address] [place], [place] [phone] 10/13/2025 3:20 PM EST Office Visit Gastroenterology - [address] [facility] 299 [facility] [address] [place] [phone] Olag Laws NP [address] [place] [address] Scheduled Orders Name Type Priority Associated Diagnoses Orde r Schedule CBC and differential Lab Routine Syncope, unspecified syncope type Palpitations 1 Occurrences starting 07/08/2025 until 07/08/2026 Comprehensive metabolic panel Lab Routine Syncope, unspecified syncope type Palpitations 1 Occurrences starting 07/08/2025 until 07/08/2026 documented as of this encounter Visit Diagnoses Diagnosis Syncope, unspecified syncope type- Primary Palpitations documented in this encounter Additional Health Concerns Assessment Noted Time PHQ-9 Depression Total Score: 4 03/26/20 25 6:56 PM EDT documented as of this encounter Care Teams Sky Cap Relationship Specialty Start Date End Date Negin Patel MD 175 [facility] [address] [place] [phone] PCP - General Internal Medicine 04/08/22 documented as of this encounter
--- OUTSIDE RECORDS SUMMARY | 2025-07-08 14:12 | XMS_ITS | Encounter Summary ---
Author Organization [facility] [place] [address] Care Team Providers Care Energy Conservation Specialist Name Role Phone Negin Patel MD Primary Care Provider [phone] Encounter Details Date Type Department Care Team (Late st Contact Info) Description 07/08/2025 Results Follow-Up Obstetrics and Gynecology - [place] [address] [place] [phone] Olga Hamilton [place] Social History Tobacco Use Types Packs/Day Years [...] care for your loved ones. For example, summer child caregiver or elderly care for an older adult? [...] AM EST Office Visit Internal Medicine - [place] 175 [facility] [address] [place] [phone] Negin Patel MD [address] [place] [phone] 08/19/2025 9:15 AM EST Office Visit Bariatric Surgery - [place] 175 [facility] [address] [place] [phone] Clay Ibarra MD [address] [place] [phone] 10/06/2025 9:00 AM EST Office Visit [facility] Hematology Oncology [address] [place] [phone] Leann Prince, DO [address] [place] [address] 10/13/2025 3:20 PM EST Office Visit Gastroenterology - 299 [facility] 299 [facility] [address] [place] [address] Olga Laws NP [address] [place] [address] documented as of this encounter Visit Diagnoses Not on filedocumented in this encounter Additional Health Concerns Assessment Noted Time PHQ-9 Depression Total Score: 4 03/26/20 25 6:56 PM EDT documented as of this encounter Care Teams Energy Conservation Specialist Relationship Specialty Start Date End Date Negin Patel MD [address] [phone] PCP - General Internal Medicine 04/08/22 documented as of this encounter
--- OUTSIDE RECORDS SUMMARY | 2025-07-08 14:12 | XMS_ITS | Clinical Summary ---
Author Organization [facility] Address [address] [place] [address] Care Team Providers Care Orthopedic Brace Maker Name Role Phone Pcp, No Primary Care [...] age to complete this topic Care Teams Orthopedic Brace Maker Relationship Specialty Start Date End Date Pcp, No [address] [place] [address] PCP - General 11/19/20
--- OUTSIDE RECORDS SUMMARY | 2025-07-08 14:12 | XMS_ITS | Encounter Summary ---
Author Organization [facility] Address [address] [place] [address] Care Team Providers Care Freight Representative Name Role Phone Negin Patel MD Primary Care Provider [phone] Encounter Details Date Type Department Care Team ([facility] st Contact Info) Description 06/17/2025 Results Follow-Up Internal Medicine - [place] [address] [place] [phone] Negin Patel MD [address] [place] [phone] Social History Tobacco Use Types Packs/Day Years [...] care for your loved ones. For example, child care worker or elderly care for an older adult? [...] Entry Date Author No 12/04/2024 1:30 PM Srinivasa Harrison RN documented in this encounter Plan of Treatment Upcoming Encounters Date Type Department Care Team (Late st Contact Info) Description 07/25/2025 9:45 AM EST Office Visit Internal Medicine - [place] [address] [facility] [address] [place] [phone] Negin Patel MD [address] [place] [phone] 08/19/2025 9:15 AM EST Office Visit Bariatric Surgery - [place] [address] [facility] [address] [place] [phone] Clay Ibarra MD [address] [place] [phone] 10/06/2025 9:00 AM EST Office Visit [facility] Hematology Oncology [address] [place] [phone] Leann Prince DO [address] [place] [address] 10/13/2025 3:20 PM EST Office Visit Gastroenterology - [address] [facility] [address] [facility] [address] [place] [phone] Olga Laws NP [address] [place] [address] documented as of this encounter Visit Diagnoses Not on filedocumented in this encounter Additional Health Concerns Assessment Noted Time PHQ-9 Depression Total Score: 4 03/26/20 25 6:56 PM EDT documented as of this encounter Care Teams Freight Representative Relationship Specialty Start Date End Date Negin Patel MD [address] [place] [phone] PCP - General Internal Medicine 04/08/22 documented as of this encounter
[2025-07-08 16:18] LABS: MANUAL DIFF FLAG NO
[2025-07-08 16:49] LABS: Hematocrit 41.5 % (37.0-47.0); Hemoglobin 13.1 g/dl (12.0-16.0); Imm Gran Abs Auto 0.01 X10*3/uL (0.00-0.03); Imm Gran Pct Auto 0.2 % (0.0-0.4); Lymphocytes Absolute Auto 1.0 X10*3/uL (1.2-4.9); Mean Corpuscular HGB Conc 31.6 g/dl (31.0-35.0); Mean Corpuscular Hemoglobin 26.7 pg (27.0-33.0); Mean Corpuscular Volume 84.7 fL (80.0-98.0); NRBC Abs Auto 0.000 X10*3/uL (0.0-0.012); NRBC Pct Auto 0.0 /100WBC (0.0-0.2); Platelet Count 391 X10*3/uL (160-400); Red Blood Count 4.90 X10*6/uL (4.20-5.50); White Blood Count 6.0 X10*3/uL (4.8-10.8)
[2025-07-08 16:58] LABS: Alanine Aminotransferase 14 U/L (0-31); Albumin Level 4.5 g/dL (3.5-5.0); Alkaline Phosphatase 87 U/L (39-117); Anion Gap 10 (12-20); Aspartate Amino Transferase 25 U/L (5-31); Blood Urea Nitrogen 20 mg/dL (9-16); Calcium 9.4 mg/dL (8.4-10.2); Carbon Dioxide 28 mmol/L (22-29); Chloride 108 mmol/L (96-108); Estimated Glomerular Filt Rate > 60; Potassium 3.7 mmol/L (3.3-5.1); Sodium 142 mmol/L (135-145); Total Protein 7.4 g/dL (6.5-8.0)
== END 2025-07-08 11:01 | disposition home or self-care (01) ==
LOC: HO.HHCL 11:00
PROVIDERS: PCP Internal Medicine; Visit Provider Nurse Practitioner Primary Care
DX: R55 Syncope and collapse (principal); R00.2 Palpitations
CPT/HCPCS: 36415; 80053; 85025

== ENCOUNTER 2025-07-30 15:43 | Emergency (ER) | payer OTHER, SELFPAY ==
--- OUTSIDE RECORDS SUMMARY | 2025-07-28 08:00 | XMS_ITS | Encounter Summary ---
Author Organization [facility] Address [address] [facility] 7 [place] [address] Care Team Providers Care Insole Doubler Name Role Phone Unavailable Primary Care Provider Unavailabl e Reason for Visit * Reason Comments Filling Encounter Details Date Type Department Care Team ([facility] st Contact Info) Description 07/28/2025 8:00 AM EST Office Visit [facility] ADULT DENTAL [address] [place] [address] Trish Michaels DDS [address] [place] [address] Dental caries (Primary Dx) Social History Tobacco Use Types Packs/Day Years Used Date Smoking Tobacco: Never Passive Smoke Exposure: Never Smokeless Tobacco: Never Alcohol Answer Date Recorded Frequency of Alcohol Consumption Not on file 07/25/2025 Average Number of Drinks Not on file 025 How often do you have six or more drinks on one occasion? 0 07/25/2025 Comments Unknown Sex and Gender Information Value Date Recorded Sex Assigned at Female 07/25/2025 8:06 AM EST Legal Sex Female 8:01 AM EST Gender Identity Female 07/25/2025 8:06 AM EST Sexual Orientation Straight 07/25/2025 8: 06 AM EST documented as of this encounter Last Filed Vital Signs Vital Sign Reading Time Taken Comments Blood Pressure 110/80 07/28/2025 8:04 AM EST Pulse - - Temperature - - Respiratory Rate - - Oxygen Saturation - - Inhaled Oxygen Concentration - - Weight - - Height - - Body Mass Index - - documented in this encounter Progress Notes * Trish Michaels DDS - 07/28/2025 8:00 AM EST Patient ID: Amara Ely is a 45 y.o. female. Time Out: Timeout Date: 07/28/25, Timeout Time: 0807 (Time out for filling on tooth #30) Location: [facility] Tooth: #30 Procedure: Mandaen Verified the above with patient, nutritional assistant, and provider. Confirmed via patient's chart, intraorally and by radiographs. Macaroni Press Operator: not applicable Chief Complaint Patient presents with Filling Medical Hx: Vitals: Blood pressure 110/80. Medications, Med Hx reviewed with patient and updated in chart. Consent Obtained: The risks, benefits, indications, potential complications, and alternatives were explained to the patient and informed consent was obtained with good understanding. Treatment Provided: Dental procedures in this visit D2392 - RESIN-BASED COMPOSITE - 2 SURF, POSTERIOR 30 B(V)O (Completed) Service provider: Trish Michaels DDS Billing provider: Trish Michaels DDS D9450 - CASE PRESENTATION, DETAILED AND EXTENSIVE TREATMENT PLANNING (Completed) Service provider: Trish Michaels DDS Billing provider: Trish Michaels DDS Diagnosis: Dental caries Topical: 20% Benzocaine Anesthesia: 2% Lidocaine (Xylocaine) w/ 1:100,000 epinephrine Number of Cartridges: 1.5 Injection Type: Buccal infiltration, Inferior alveolar nerve block, and Long buccal nerve block Confirmed profound anesthesia. Isolation: cotton rolls and high speed suction Prep: All caries removed and Preparation finalized Matrix: None Etch: 37% Phosphoric Acid Etch Desensitizer: None Liner/Base: None Ramon: I-Ramon Mandaen Material: Filtek [place] Flowable Composite and Paradigm Composite Shade: A3 Polished. Occlusion & contacts verified. Patient satisfied with comfort and esthetics. Patient tolerated procedure well. Post-operative instructions were given. Patient departed alert, oriented, and in stable condition. NV: CHAVO + PAD Miniature Train Driver: Chitra Odom Dentist: Trish Michaels DDS documented in this encounter Plan of Treatment Upcoming Encounters Date Type Department Care Team (Late st Contact Info) Description 08/22/2025 8:00 AM EST Office Visit [facility] ADULT DENTAL [address] [place] [address] Trish Michaels, DDS [address] [place] [address] Scheduled Orders Name Type Priority Associated Diagnoses Orde r Schedule COMPREHENSIVE ORAL EVALUATION - NEW OR ESTABLISHED PATIENT Dental Routine 1 Occurrence s starting 07/28/2025 INTRAORAL - COMPLETE SERIES OF RADIOGRAPHIC IMAGES Dental Routine [address] arting 07/28/2025 documented as of this encounter Procedures Procedure Name Priority Date/Time Associated Diagnosis Comments 30 B(V)O RESIN-BASED COMPOSITE - 2 SURF, POSTERIOR Routine 07/28/2025 8:00 AM EST Dental caries CASE PRESENTATION, DETAILED AND EXTENSIVE TREATMENT PLANNING Routine 07/28/2025 8:00 AM EST Dental caries documented in this encounter Visit Diagnoses Diagnosis Dental caries- Primary Unspecified dental caries documented in this encounter
--- OUTSIDE RECORDS SUMMARY | 2025-07-28 14:30 | XMS_ITS | Encounter Summary ---
Author Organization [facility] Address [address] [facility] 7 [place] [address] Care Team Providers Care Geoscientist Name Role Phone Unavailable Primary Care Provider Unavailabl e Encounter Details Date Type Department Care Team (Late Contact Info) Description 07/28/2025 2:30 PM EST Office Visit [facility] ADULT DENTAL [address] [place] [address] Trish Michaels DDS [address] [place], [place] [phone] Tooth sensitivity to cold (Primary Dx) Social History Tobacco Use Types [...] AM EST documented as of this encounter Progress Notes * Trish Michaels DDS - 07/28/2025 2:30 PM EST Amara Solis in office because of sensitivity on spiritism site. On the clinical exam is noticed open filling area. Anesthetic 1:100,000 1 carp administered, area prepared and composite filling completed, polished and occlusion verified. Pt left satisfied. documented in this encounter Plan of Treatment Upcoming Encounters Date Type Department Care Team (Late Contact Info) Description 08/22/2025 8:00 AM EST Office Visit [facility] ADULT DENTAL [address] [place] [address] Trish Michaels, YVROSE [address] [place] [address] documented as of this encounter Procedures Procedure Name Priority Date/Time Associated Diagnosis Comments NO CHARGE PROCEDURE Routine 07/28/2025 2:30 PM ES T Tooth sensitivity to cold documented in this encounter Visit Diagnoses Diagnosis Tooth sensitivity to cold- Primary documented in this encounter
[2025-07-30 16:23] VITALS: BP 134/76; PULSE 92; O2SAT 95; BMI 26.6
[2025-07-30 16:54] LABS: MANUAL DIFF FLAG NO
[2025-07-30 16:59] LABS: Hematocrit 40.5 % (37.0-47.0); Hemoglobin 13.2 g/dl (12.0-16.0); Imm Gran Abs Auto 0.01 X10*3/uL (0.00-0.03); Imm Gran Pct Auto 0.2 % (0.0-0.4); Lymphocytes Absolute Auto 1.0 X10*3/uL (1.2-4.9); Mean Corpuscular HGB Conc 32.6 g/dl (31.0-35.0); Mean Corpuscular Hemoglobin 27.1 pg (27.0-33.0); Mean Corpuscular Volume 83.2 fL (80.0-98.0); NRBC Abs Auto 0.000 X10*3/uL (0.0-0.012); NRBC Pct Auto 0.0 /100WBC (0.0-0.2); Platelet Count 349 X10*3/uL (160-400); Red Blood Count 4.87 X10*6/uL (4.20-5.50); White Blood Count 6.2 X10*3/uL (4.8-10.8)
--- NOTE | 2025-07-30 17:02 | ED.GENADULT ---
HPI - General Adult General Chief complaint: Psychiatric Symptoms Stated complaint: SI Time Seen by Provider: 07/30/25 16:24 History of Present Illness ED Provider: reyna HPI narrative: 45 F Related Data Allergies Allergy/AdvReac Type Severity Reaction Status Date / Time cabbage Allergy Intermediate THROAT Verified 07/30/25 16:27 ITCHES latex (LATEX) Allergy Intermediate HIVES Verified 07/30/25 16:27 iris Allergy Intermediate THROAT Verified 07/30/25 16:27 ITCHES sulfamethoxazole (From Allergy Intermediate HIVES Verified 07/30/25 16:27 BACTRIM) trimethoprim (From BACTRIM) Allergy Intermediate HIVES Verified 07/30/25 16:27 PMFSH Social History Social History Advance Directives: No Advance Directives Information Provided: Yes Do you have a plan to hurt others: No Plan Physical Exam ED Vital Signs: BMI result Body Mass Index 26.6 Medical Decision Making Lab Data 07/30/25 16:42 07/30/25 16:42 Labs: Lab Results 07/30/25 07/30/25 Range/Units 16:42 16:43 WBC 6.2 (4.8-10.8) X10*3/uL RBC 4.87 (4.20-5.50) X10*6/uL Hgb 13.2 (12.0-16.0) g/dl Hct 40.5 (37.0-47.0) % MCV 83.2 (80.0-98.0) fL MCH 27.1 (27.0-33.0) pg MCHC 32.6 (31.0-35.0) g/dl RDW 14.2 (11.0-16.0) % Plt Count 349 (160-400) X10*3/uL MPV 9.2 L (9.4-12.3) fL Immature Gran % (Auto) 0.2 (0.0-0.4) % Neut % (Auto) 74.7 H (45-73) % Lymph % (Auto) 15.9 L (20-40) % [place] % (Auto) 5.4 (2-11) % Eos % (Auto) 3.2 (0-4) % Baso % (Auto) 0.6 (0-2) % Lymph # (Auto) 1.0 L (1.2-4.9) X10*3/uL [place] # (Auto) 0.3 (0.1-1.2) X10*3/uL Eos # (Auto) 0.2 (0.0-0.4) X10*3/uL Baso # (Auto) 0.0 (0.0-0.2) X10*3/uL Abs Immat Gran (auto) 0.01 (0.00-0.03) X10*3/uL Absolute Neuts (auto) 4.6 (2.0-8.3) x10*3/uL Absolute Nucleated RBC 0.000 (0.0-0.012) X10*3/uL Nucleated RBC % (auto) 0.0 (0.0-0.2) /100WBC Sodium 139 (135-145) mmol/L Potassium 3.8 (3.3-5.1) mmol/L Chloride 103 (96-108) mmol/L Carbon Dioxide 27 (22-29) mmol/L Anion Gap 13 (12-20) BUN 12 (9-16) mg/dL Creatinine 0.83 (0.5-1.4) mg/dL Estim Creat Clear Calc 88.5 Estimated GFR > 60 Random Glucose 93 (60-115) mg/dL Calcium 9.9 (8.4-10.2) mg/dL Total Bilirubin 0.9 (0.0-1.0) mg/dL AST 29 (5-31) U/L ALT 13 (0-31) U/L Alkaline Phosphatase 91 (39-117) U/L Total Protein 7.5 (6.5-8.0) g/dL Albumin 4.6 (3.5-5.0) g/dL Urine Color Yellow Urine Appearance Clear Urine pH 7.5 (5.0-9.0) Ur Specific [place] 1.010 (1.005-1.025) Urine Protein Negative (Neg-Trace) mg/dL Urine Glucose (UA) Negative (Negative) mg/dL Urine Ketones Negative (Negative) mg/dL Urine Blood Trace H (Negative) Urine Nitrite Negative (Negative) Ur Leukocyte Esterase Negative (Negative) Urine RBC 0-2 (0-2) /HPF Urine WBC 0-5 (0-5) /HPF Ur Squamous Epith Cells 3-5 (0-2) /HPF Urine Bacteria None Seen (None Seen) Hyaline Casts 0-2 (0-2) /LPF Urine Test NEGATIVE (NEGATIVE) Urine Opiates Screen Not Detected (Not Detect) Ur Buprenorphine Scrn Not Detected (Not Detect) ng/mL Ur Oxycodone Screen Not Detected (Not Detect) ng/mL Urine Methadone Screen Not Detected (Not Detect) ng/mL Urine Fentanyl Screen Not Detected (Not Detect) Ur Barbiturates Screen Not Detected (Not Detect) Ur Phencyclidine Scrn Not Detected (Not Detect) Ur Amphetamines Screen Not Detected (Not Detect) U Benzodiazepines Scrn Not Detected (Not Detect) Urine Cocaine Screen Not Detected (Not Detect) U Marijuana (THC) Screen Not Detected (Not Detect) Ethyl Alcohol 10 mg/dL Discharge Plan Discharge Clinical Impression: Intentional self-harm Patient Disposition: Home, Self-Care Instructions: Suicide Prevention (ED) Additional Instructions: DISCHARGE DIAGNOSES: self harm HISTORY OF PRESENTATION: ?anger, self cutting EMERGENCY DEPARTMENT COURSE,TESTS, TREATMENTS: While in the ED today you were evaluated by or crisis staff DISCHARGE MEDICATIONS: ?[We have made no changes to your regular medication regimen] FOLLOW-UP: ?Call your primary or general physician soon as possible to discuss your symptoms, your ED visit and to discuss follow up plans call behavioral team for follow up INSTRUCTIONS ?& RETURN PRECAUTIONS: If any symptoms change first call your primary physician, if it is after-hours your primary doctors office should have a provider vice president of consulting services you can speak with. If the symptoms are severe or very concerning to you then call 911 or return to the ED. You were seen in our Emergency Department today for treatment of a behavioral health issue. It is important after your visit that you follow up with either your behavioral health provider or a primary care doctor within 7 days.? If you have trouble finding a therapist you can reach out to [address] [phone] The National Suicide and Crisis Lifeline can be reached 7 days a week 24 hours a day.? Call 988 to speak with someone.? Return for any worsening symptoms or concerns such as thoughts of self harm or harm to others. Please call 911 if you feel your mental health is worsening.? Moncho Fuller MD Emergency Physician [facility] Interventions: Cataldo-Suicide Risk Severity Scale Last Done: 07/30/25 16:32 Print Language: Trinidadian
[2025-07-30 17:12] LABS: Alanine Aminotransferase 13 U/L (0-31); Albumin Level 4.6 g/dL (3.5-5.0); Alkaline Phosphatase 91 U/L (39-117); Anion Gap 13 (12-20); Aspartate Amino Transferase 29 U/L (5-31); Blood Urea Nitrogen 12 mg/dL (9-16); Calcium 9.9 mg/dL (8.4-10.2); Carbon Dioxide 27 mmol/L (22-29); Chloride 103 mmol/L (96-108); Creatinine Clr Calc Pharmacy 88.5; Estimated Glomerular Filt Rate > 60; Potassium 3.8 mmol/L (3.3-5.1); Sodium 139 mmol/L (135-145); Total Protein 7.5 g/dL (6.5-8.0)
[2025-07-30 17:13] LABS: Cannabinoid Screen Urine Not Detected (Not Detect)
[2025-07-30 17:19] LABS: Appearance Urine Clear; Glucose Urine UA Negative (Negative); PH 7.5 (5.0-9.0); Specific Gravity - Urine 1.010 (1.005-1.025); UMIC TRIGGER UACC YES; UPreg QC Valid YES
--- NOTE | 2025-07-30 18:24 | PC.NURSE ---
Pt is noted to have superficial cuts to bilat forearms, Pts Rt FA has a significant amount of cuts, 20-30, Lt FA with 5, with dark dried blood. Forearms are cleaned and bacitracin is applied.
[2025-07-30 20:19] VITALS: BP 110/70; PULSE 80; RESP 18; TEMP 36.7
--- OUTSIDE RECORDS SUMMARY | 2025-07-31 04:55 | XMS_ITS | Encounter Summary ---
Author Organization [facility] Address [address] [place] [address] Phone Care Team Providers Care Human Resources Administrator Name Role Phone Negin Patel MD Primary Care Provider [phone] Encounter Details Date Type Department Care Team (Late st Contact Info) Description 08/29/2022 Procedure Pass OR Admitting Dept - Virtual Department 30 [place] [address] Social History Tobacco Use Types Packs/Day Years [...] on filedocumented in this encounter Care Teams Human Resources Administrator Relationship Specialty Start Date End Date Negin Patel MD [address] [phone] PCP - General Internal Medicine 05/17/22 documented as of this encounter Additional Source Comments The information contained in this document represents components of the legal health record. It is not the complete legal health record.[facility]
--- OUTSIDE RECORDS SUMMARY | 2025-07-31 04:55 | XMS_ITS | Clinical Summary ---
Author Organization [employer] Address [address] [facility] 7t [place] [address] Care Team Providers Care Terrapin Fisher Name Role Phone Unavailable Primary Care Provider Unavailabl e Allergies Active Allergy Reactions Criticality Noted Date Comments Vdiqtsmqts-Lfzf-Ikvrum ne Nausea And Vomiting High 06/26/2009 Sxv-Klp-Jgxhlal E Nausea And Vomiting 9 Other Reaction(s): Hives/Urticaria salmon only 07/27/09/sg per pt Kiwi Extract Hives High 03/05/2020 Other Reaction(s): Hives/Urticaria Latex Anaphylaxis,Hives,I tching,Rash,Shortne ss of breath,Swelling High 12/04/2008 Other Reaction(s): Dermatitis, skin irritation Naproxen Hives High 01/25/2017 Hives Hives Other High 07/02/2024 FISH (GNP FISH) Hives/Urticaria, Nausea and Vomiting salmon only 07/27/09/sg per pt Shellfish Allergy Hives 03/05/2020 Other Reaction(s): Hives/Urticaria scallop Shellfish Protein-Containing Drug Products High 03/05/2020 Other Reaction(s): Hives/Urticaria scallop Sulfa Antibiotics Anaphylaxis,Hives,I tching,Shortness of breath,Swelling High 06/28/2022 Sulfamethoxazole-Trime thoprim Hives,Itching,Short ness of breath,Swelling High 05/05/2009 Other Reaction(s): Facial swelling, Generalized itching, Hives/Urticaria Had Bactrim DS x 4 pills. Other Reaction(s): Hives/Urticaria Had Bactrim DS x 4 pills. Medications cetirizine (ZyrTEC) 10 MG chewable tablet Chew Once per day. Active phentermine (Adipex-P) 37.5 MG tablet Take 37.5 mg by mouth before breakfast. Active amoxicillin (Amoxil) 500 MG capsule Take 1 capsule (500 mg) by mouth every 8 (eight) hours for 7 days. 21 capsule 07/27/2025 Active acetaminophen (Tylenol) 500 MG tablet Take 1 tablet (500 mg) by mouth every 8 (eight) hours if needed for mild pain for up to 7 days. 21 tablet 07/27/2025 Active Active Problems Problem Noted Date Diagnosed Date Headache 07/28/2025 Hypertrophic scar of skin 07/28/2025 Macromastia 07/28/2025 Obesity 07/28/2025 Palpitations 03/28/2025 Surgery follow-up 05/20/2024 Iron deficiency anemia 04/11/2024 Cubital tunnel syndrome on right 12/27/2023 Overweight (BMI 25.0-29.9) 09/07/2023 Right lateral epicondylitis 07/18/2023 Lichen sclerosus 12/20/2022 Overview (07/28/2025): Last Assessment & Plan: Reviewed findings with [...] use. She voiced understanding. She was given [facility] information re: LS today and will call with any questions. She will start Mycolog nightly during menses and MWF other weeks. 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 Celiac disease 03/02/2010 GERD (gastroesophageal reflux disease) 8 Encounters Date Type Department Care Team Description 07/28/2025 2:30 PM EST Office Visit [facility] ADULT DENTAL [address] [place] [address] Trish Michaels DDS Tooth sensitivity to cold (Primary Dx) 07/28/2025 8:00 AM EST Office Visit [facility] ADULT DENTAL [address] [place] [address] Trish Michaels DDS Dental caries (Primary Dx) 07/28/2025 Travel 07/25/2025 11:30 AM EST Office Visit [facility] ADULT DENTAL [address] [place] [address] Lauri Loomis DDS from Last 3 Months Social History Tobacco Use Types Packs/Day Years Used Date Smoking Tobacco: Never Passive Smoke Exposure: Never Smokeless Tobacco: Never Tobacco Cessation:Counseling Given: No Alcohol Answer Date Recorded Frequency of Alcohol [...] Orientation Straight 07/25/2025 8: 06 AM EST Last Filed Vital Signs Vital Sign Reading Time Taken Comments Blood Pressure 110/80 07/28/2025 8:04 AM EST Pulse - - Temperature - - Respiratory Rate - - Oxygen Saturation - - Inhaled Oxygen Concentration - - Weight - - Height - - Body Mass Index - - Plan of Treatment Upcoming Encounters Date Type Department Care Team (Late st Contact Info) Description 08/22/2025 8:00 AM EST Office Visit [facility] ADULT DENTAL [address] [place] [address] Ramirez-Jeison Quinonesmia, DDS [address] [place] [address] Health Maintenance Due Date Last Done Comments CT Colonography 1980 Colonoscopy 1980 Colorectal Cancer Screening 1980 Dental Oral Exam 1980 Dental Prophylaxis 1980 Depression Screening 1980 FIT DNA/Cologuard 1980 FIT 1980 FOBT 1980 HIV Screening 1980 Lipid Panel 1980 SDOH Screening 1980 Sigmoidoscopy 1980 Disability Screening 1980 Family Planning (PISQ) 1995 HPV Vaccines (1 - 3-dose series) 1995 Hepatitis C Screening 1998 Pap Smear 2001 Cervical Cancer Screening 2010 HPV/Cotest 2010 Mammogram 2020 COVID-19 Vaccine ( season) 2025 11/07/2021, 03/09/2021, 02/16/2021 Influenza Vaccine (#1) 2025 2, 09/20/2021, 06/08/2020, Additional history exists Alcohol/Substance Use Screening 07/25/2026 07/25/2025 Dental X-Ray: Bitewings 07/26/2026 07/25/2025 Tobacco Screening 07/28/2026 07/28/2025 Dental X-Ray: Full Mouth 07/26/2028 07/25/2025 Zoster Vaccines (1 of 2) 2030 DTaP/Tdap/Td Vaccines (5 - Td or Tdap) 12/04/2031 12/03/2021, 09/20/2021, 09/20/2021, Additional history exists RSV Patients and Patients Aged 60 years or older (1 - 1-dose 75+ series) 2055 Hepatitis B Vaccines Completed 12/15/2023, 06/23/2011, 06/23/2011, Additional history exists HIB Vaccines Aged Out No longer eligi [...] patient's age to complete this topic Meningococcal Vaccine Aged Out No gege afustino eligible based on patient's age to complete this topic Pneumococcal Vaccine: Pediatrics (0 to 5 Years) and At-Risk Patients (6 to 49) Years Aged Out No longer eligible based on patient's age to complete this topic RSV under 20 months Aged Out No longe r eligible based on patient's age to complete this topic Rotavirus Vaccines Aged Out No longer eligible based on patient's age to complete this topic Procedures Procedure Name Priority Date/Time Associated Diagnosis Comments NO CHARGE PROCEDURE Routine 07/28/2025 2:30 PM EST Tooth sensitivity to cold CASE PRESENTATION, DETAILED AND EXTENSIVE TREATMENT PLANNING Routine 07/28/2025 8:00 AM EST Dental caries 30 B(V)O RESIN-BASED COMPOSITE - 2 SURF, POSTERIOR Routine 07/28/2025 8:00 AM EST Dental caries CASE PRESENTATION, DETAILED AND EXTENSIVE TREATMENT PLANNING Routine 07/25/2025 11:30 AM EST BITEWING - SINGLE RADIOGRAPHIC IMAGE Routine 07/25/2025 11:30 AM EST INTRAORAL - PERIAPICAL FIRST RADIOGRAPHIC IMAGE Routine 07/25/2025 11:30 AM EST PANORAMIC RADIOGRAPHIC IMAGE Routine 07/25/2025 11:30 AM EST LIMITED ORAL EVALUATION - PROBLEM FOCUSED Routine 07/25/2025 11:30 AM EST from Last 3 Months Insurance [facility] MEDICAID STAND ADULT
--- OUTSIDE RECORDS SUMMARY | 2025-07-31 04:55 | XMS_ITS | Clinical Summary ---
Author Organization [facility] Address [address] [place] [address] Phone Care Team Providers Care Office Technology Professor Name Role Phone Negin Patel MD Primary Care Provider [phone] Allergies Active Allergy Reactions Criticality Noted Date [...] patient's age to complete this topic IPV VACCINES Aged Out No longer eligi ble [...] topic Medical Devices Not on file Insurance [employer] [place] [employer] [place] [address] [address] [place] [address] [place] [address] ALLANCE ACO [facility] ALLANCE ACO [place] [facility] [facility] Advance Directives For more information, please contact: [phone] (9AM - 5PM [facility], Monday-Monday) * Full Code (Latest Code Status on File) Date Activated Date Inactivated Comments 08/29/2022 8:13 AM Question Answer Comments Code Status Confirmed With: Patient Care Teams Office Technology Professor Relationship Specialty Start Date End Date Negin Patel MD [address] [place] [phone] PCP - General Internal Medicine 05/17/22 Additional Source Comments The information contained in this document represents components of the legal health record. It is not the complete legal health record.[facility]
--- OUTSIDE RECORDS SUMMARY | 2025-07-31 04:55 | XMS_ITS | Encounter Summary ---
Author Organization [employer] [facility] Address [address] [facility] 7 [place] [address] Care Team Providers Care Gm Video Name Role Phone Unavailable Primary Care Provider Unavailabl e Encounter Details Date Type Department Care Team (Latest Contact Info) Description 07/28/2025 Travel Social History Tobacco Use Types Packs/Day Years [...] AM EST documented as of this encounter Plan of Treatment Upcoming Encounters Date Type Department Care Team (Late st Contact Info) Description 08/22/2025 8:00 AM EST Office Visit [facility] ADULT DENTAL [address] [place] [address] Trish Michaels, YVROSE [address] [place] [address] documented as of this encounter Visit Diagnoses Not on filedocumented in this encounter
--- OUTSIDE RECORDS SUMMARY | 2025-07-31 04:55 | XMS_ITS | Clinical Summary ---
Author Organization [facility] Address [address] [place] [address] Care Team Providers Care Bezel Cutter Name Role Phone Negin Patel MD Primary Care Provider [phone] Allergies Active Allergy Reactions Criticality Noted Date Comments Sulfamethoxazole-Trimethoprim 2023 Bgpbmmujcd-Lmqt-Pmwgdawz Nausea And Vomiting Kiwi Extract Hives 03/05/2020 [...] age to complete this topic Care Teams Bezel Cutter Relationship Specialty Start Date End Date Negin Patel MD [address] [place] [phone] PCP - General Internal Medicine 03/20/24
--- OUTSIDE RECORDS SUMMARY | 2025-07-31 04:56 | XMS_ITS | Clinical Summary ---
Author Organization [facility] Address [address] [place] [address] Care Team Providers Care Braid Pattern Setter Name Role Phone Pcp, No Primary Care [...] age to complete this topic Care Teams Braid Pattern Setter Relationship Specialty Start Date End Date Pcp, No [address] [place] [address] PCP - General 11/19/20
--- NOTE | 2025-07-31 08:20 | MHC.CARE ---
Referral to [facility] is complete
== END 2025-07-30 20:21 | disposition home or self-care (01) ==
PROVIDERS: Emergency Medicine; Emergency Provider Emergency Medicine; PCP Internal Medicine
DX: R45.851 Suicidal ideations (principal)
CPT/HCPCS: 36415; 80053; 80307; 81001; 81025; 85025; 99284; S9485

== ENCOUNTER 2025-09-02 11:39 | Emergency (ER) | payer OTHER, SELFPAY ==
--- NOTE | ~2025-09-02 | CT_ITS ---
EXAMINATION: CT ABDOMEN PELVIS WITH IV CONTRAST HISTORY: R Flank Pain COMPARISON: There are no prior studies for available comparison. TECHNIQUE: CT scan of the abdomen and pelvis was performed following administration of 85 mL Omnipaque 350 using standard departmental protocol. Coronal and sagittal reformatted images were generated and reviewed. Oral contrast material was not administered at the request of the referring physician. This CT exam was performed with one or more of the following dose reduction techniques: automated exposure control, adjustment of the mA and/or kV according to patient size, use of iterative reconstruction technique. DLP: 660 mGy-cm FINDINGS: LOWER CHEST: The visualized lung bases are clear. There is no pleural effusion. CARDIOVASCULATURE: The heart is normal in size. There is no pericardial effusion. LIVER: The liver is normal in size and contour. No liver mass is identified. The hepatic and portal veins are patent. GALLBLADDER / BILE DUCTS: The gallbladder is surgically absent. There is no intra or extrahepatic biliary ductal dilatation. SPLEEN: The spleen is normal in size. No focal splenic lesion is identified. PANCREAS: The pancreas is unremarkable in appearance. ADRENAL GLANDS: Within normal limits. KIDNEYS/RETROPERITONEUM: There is symmetric enhancement of the kidneys. There is slight prominence of the right renal pelvis and proximal ureter with associated mucosal enhancement. Findings are suspicious for pyelitis. No renal or ureteral calculi are identified. There is no hydronephrosis or hydroureter. No renal masses are identified. LYMPH NODES: No abdominal or pelvic lymphadenopathy. VASCULATURE: The abdominal aorta is normal in caliber. MESENTERY/PERITONEUM: No free fluid. No masses. There is no free intraperitoneal gas. STOMACH: There are postsurgical changes involving the stomach. SMALL BOWEL: The small bowel is normal in caliber. COLON: The colon is unremarkable. APPENDIX: Normal. URINARY BLADDER/PELVIC ORGANS: The urinary bladder is collapsed, limiting evaluation. The uterus is unremarkable. BONES / SOFT TISSUES: No suspicious bony or soft tissue abnormalities. CT/CT abdomen pelvis w IV con IMPRESSION: Slight prominence of the right renal pelvis and proximal ureter with associated mucosal enhancement. Findings are suspicious for pyelitis. Clinical correlation is recommended. Electronically signed by: Al Pederson MD 09/02/2025 03:16 PM EST
[2025-09-02 11:44] VITALS: BP 108/72; BP 115/75; PULSE 104; PULSE 90; RESP 16; TEMP 36.8; O2SAT 100; O2SAT 98; BMI 27.5
--- NOTE | 2025-09-02 12:57 | ECG_ITS ---
Test Reason : near syncope Blood Pressure : */* mmHG Vent. Rate : 111 BPM Atrial Rate : 111 BPM P-R Int : 186 ms QRS Dur : 82 ms QT Int : 316 ms P-R-T Axes : 46 -21 36 degrees QTcB Int : 429 ms Poor data quality, interpretation may be adversely affected Sinus tachycardia Possible Lateral infarct , age undetermined Abnormal ECG When compared with ECG of 19-Feb-2025 09:05, Vent. rate has increased by 45 bpm Referred By: Lacie Galo Electronically Signed By: SHAY WHATLEY MD
[2025-09-02 13:08] LABS: Hematocrit 38.8 % (37.0-47.0); Hemoglobin 12.7 g/dl (12.0-16.0); Imm Gran Abs Auto 0.04 X10*3/uL (0.00-0.03); Imm Gran Pct Auto 0.4 % (0.0-0.4); Lymphocytes Absolute Auto 0.3 X10*3/uL (1.2-4.9); MANUAL DIFF FLAG SCAN; Mean Corpuscular HGB Conc 32.7 g/dl (31.0-35.0); Mean Corpuscular Hemoglobin 27.3 pg (27.0-33.0); Mean Corpuscular Volume 83.3 fL (80.0-98.0); NRBC Abs Auto 0.000 X10*3/uL (0.0-0.012); NRBC Pct Auto 0.0 /100WBC (0.0-0.2); Platelet Count 296 X10*3/uL (160-400); Red Blood Count 4.66 X10*6/uL (4.20-5.50); SCAN SMEAR FLAG 1; White Blood Count 11.3 X10*3/uL (4.8-10.8)
--- OUTSIDE RECORDS SUMMARY | 2025-09-02 13:12 | XMS_ITS | Clinical Summary ---
Author Organization [facility] Prior to 02/08/[address] [place] [address] Care Team Providers Care Tag Writer Name Role Phone Negin Patel MD Primary Care Provider [phone] Allergies Active Allergy Reactions Criticality Noted Date Comments Sulfamethoxazole-Trimethoprim 2023 Cnvzstuefg-Arwa-Ysfsnqii Nausea And Vomiting Kiwi Extract Hives 03/05/2020 [...] age to complete this topic Care Teams Tag Writer Relationship Specialty Start Date End Date Negin Patel MD [address] [place] [phone] PCP - General Internal Medicine 03/20/24
--- OUTSIDE RECORDS SUMMARY | 2025-09-02 13:12 | XMS_ITS | Clinical Summary ---
Author Organization [employer] Address [address] [facility] 7t [place] [address] Care Team Providers Care Ux Research Associate Name Role Phone Unavailable Primary Care Provider Unavailabl e Allergies Active Allergy Reactions Criticality Noted Date Comments Rewckxfdji-Efdh-Fraldh ne Nausea And Vomiting High 06/26/2009 Kyo-Hum-Nmvmkzx E Nausea And Vomiting 9 Other Reaction(s): [...] hours for 7 days. 21 capsule 07/27/2025 08/03/20 25 acetaminophen (Tylenol) 500 MG tablet Take 1 tablet (500 mg) by mouth every 8 (eight) hours if needed for mild pain for up to 7 days. 21 tablet 07/27/2025 08/03/20 25 Active Problems Problem Noted Date Diagnosed Date [...] use. She voiced understanding. 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 Celiac disease 03/02/2010 GERD (gastroesophageal reflux disease) 8 Encounters Date Type Department Care Team Description 07/28/2025 2:30 PM EST Office Visit [facility] ADULT DENTAL [address] [place] [address] Trish Michaels DDS Tooth sensitivity to cold (Primary Dx) 07/28/2025 8:00 AM EST Office Visit [facility] ADULT D[facility]AL [address] [place] [address] Trish Michaels DDS Dental caries (Primary Dx) 07/28/2025 Travel 07/25/2025 11:30 AM EST Office Visit [facility] ADULT D[facility]AL [address] [place] [address] Lauri Loomis DDS from Last 3 Months [...] Care Team (Late st Contact Info) Description 09/17/2025 8:00 AM EST Office Visit [facility] ADULT DENTAL [address] [place] [address] Ramirez-QuinoensDawson manciafemia, DDS [address] [place] [address] Health Maintenance Due Date Last Done Comments [...] topic Meningococcal Vaccine Aged Out No gege faustino eligible based on patient's age to complete [...] Diagnosis Comments NO CHARGE PROCEDURE Routine 07/28/2025 2 :30 PM EST Tooth sensitivity to cold CASE [...] AM EST from Last 3 Months Insurance [facility] MEDICAID STAND ADULT
--- OUTSIDE RECORDS SUMMARY | 2025-09-02 13:12 | XMS_ITS | Encounter Summary ---
Author Organization [facility] Address [address] [place] [address] Care Team Providers Care Escrow Closer Name Role Phone Negin Patel MD Primary Care Provider [phone] Reason for Visit * Reason Onset Date Comments No Show 08/29/2025 #[phone] Encounter Details Date Type Department Care Team (Late st Contact Info) Description 08/29/2025 Telephone [facility] Associates - [address] [place] [address] Prateek Fagan NP [address] [place] [address] [place] [address] Social History Tobacco Use Types [...] for your loved ones. For example, child development director or elderly care for an older adult? [...] documented in this encounter Progress Notes * Cass Dodson MA - 08/29/2025 1:43 PM EST Letter sent with information on no showed appointment and no show policy documented in this encounter Plan of Treatment Upcoming Encounters Date Type Department Care Team (Late st Contact Info) Description 10/06/2025 9:00 AM EST Office Visit [facility] Hematology Oncology [address] [place] [phone] Leann Prince, [address] [place] [address] 10/13/2025 3:20 PM EST Office Visit Gastroenterology - [address] [facility] 299 [facility] [address] [place] [address] Olga Laws NP 299 [facility] [address] [place] [address] 02/10/2026 2:45 PM EDT Office Visit Bariatric Surgery - [place] 175 [facility] [address] [place] [phone] Clay Ibarra MD [address] [place] [phone] documented as of this encounter Visit Diagnoses Not on filedocumented in this encounter Additional Health Concerns Assessment Noted Time PHQ-9 Depression Total Score: 4 03/26/20 25 6:56 PM EDT documented as of this encounter Care Teams Escrow Closer Relationship Specialty Start Date End Date Negin Patel MD 175 [facility] [address] [place] [address] PCP - General Internal Medicine 04/08/22 documented as of this encounter
--- OUTSIDE RECORDS SUMMARY | 2025-09-02 13:12 | XMS_ITS | Encounter Summary ---
Author Organization [facility] [place] [address] Care Team Providers Care Reading Intervention Teacher Name Role Phone Negin Patel MD Primary Care Provider [phone] Encounter Details Date Type Department Care Team (Late st Contact Info) Description 07/08/2025 Results Follow-Up Obstetrics [facility]necology [facility] [place] [phone] Olga Hamilton MA Social History Tobacco Use [...] for your loved ones. For example, child day care teacher or elderly care for an older adult? [...] Description 10/06/2025 9:00 AM EST Office Visit [facility] Hematology Oncology [address] [place] [phone] Leann Prince, [address] [place] [address] 10/13/2025 3:20 PM EST Office Visit Gastroenterology - 299 [facility] 299 [facility] [address] [place] [phone] Olga Laws NP 299 [facility] [address] [place] [address] 02/10/2026 2:45 PM EDT Office Visit Bariatric Surgery - [place] 175 [facility] [address] [place] [phone] Clay Ibarra MD [address] [place] [phone] documented as of this encounter Visit Diagnoses Not on filedocumented in this encounter Additional Health Concerns Assessment Noted Time PHQ-9 Depression Total Score: 4 03/26/20 25 6:56 PM EDT documented as of this encounter Care Teams Reading Intervention Teacher Relationship Specialty Start Date End Date Negin Patel MD [address] [phone] PCP - General Internal Medicine 04/08/22 documented as of this encounter
--- OUTSIDE RECORDS SUMMARY | 2025-09-02 13:12 | XMS_ITS | Clinical Summary ---
Author Organization [facility] Address [address] [place] [phone] Phone Care Team Providers Care Process Description Writer Name Role Phone Negin Patel MD Primary Care Provider [phone] Allergies Active Allergy Reactions Criticality Noted Date [...] topic Medical Devices Not on file Insurance [employer] [facility] [employer] [facility] [employer] ACO [employer] Advance Directives For more information, please contact: [phone] (9AM - 5PM [place], Monday-Monday) * Full Code (Latest Code Status on File) Date Activated Date Inactivated Comments 08/29/2022 8:13 AM Question Answer Comments Code Status Confirmed With: Patient Care Teams Process Description Writer Relationship Specialty Start Date End Date Negin Patel MD [address] [phone] PCP - General Internal Medicine 05/17/22 Additional Source Comments The information contained in this document represents components of the legal health record. It is not the complete legal health record.[facility]
--- OUTSIDE RECORDS SUMMARY | 2025-09-02 13:12 | XMS_ITS | Clinical Summary ---
Author Organization [facility] Address [address] [place] [address] Phone Care Team Providers Care Box Lidder Name Role Phone Negin Patel MD Primary Care Provider [phone] Allergies Active Allergy Reactions Criticality Noted Date [...] Amount: 37.5 mg 30 each 2 5 Active Active Problems Problem Noted Date Diagnosed [...] use. She voiced understanding. She was given [facility] information re: LS today and will call with any questions. She will start Mycolog nightly during menses and MWF other weeks. 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 Celiac disease 03/02/2010 GERD (gastroesophageal reflux disease) 8 Encounters Date Type Department Care Team Description 08/29/2025 Telephone [facility] Cardiology Associates - [address] [place] [phone] Prateek Fagan NP 08/14/2025 Telephone [facility] - [address] [place] [phone] Prateek Fagan NP 07/08/2025 Results Follow-Up Obstetrics and Gynecology - [place] [address] [place], [place] [phone] Olga Hamilton MA 07/08/2025 Telephone [facility] Associates - Medical [facility] [address] [place] [phone] Ny Flores MD 07/01/2025 Telephone Obstetrics and Gynecology - [facility] [address] [place], [place] [phone] Jessenia Coles CNM 06/19/2025 9:44 AM EDT - 06/19/2025 11:59 PM EDT Hospital Encounter Ultrasound - [facility] [address] [place], [place] [phone] Irregular menstrual cycle Discharge Disposition: Home or Self Care 06/19/2025 Results Follow-Up Obstetrics and Gynecology - [facility] [address] [place], [place] [phone] Jessenia Coles CNM 06/17/2025 10:45 AM EDT Office Visit Obstetrics [facility] Gynecology - [facility] [place], [place] [phone] Jessenia Coles CNM Screen for STD (sexually transmitted disease) (Primary Dx); Irregular menstrual cycle 06/17/2025 Results Follow-Up Internal Medicine - [place] [address] [place] [phone] Negin Patel MD 06/06/2025 Telephone [facility] Cardiology [facility] [address] [facility] [address] [place] [phone] Ny Flores MD from Last 3 Months [...] HISTORICAL CHOLECYSTECTOMY; COMMENT: 11/12 ESOPHAGOGASTRODUODENOSCOPY 02/18/2010 PROCEDURE: NE EGD TRANSORAL BIOPSY SINGLE/MULTIPLE; COMMENT: Esophagus-normal, gastric polyps-biopsy:fundic gland polyps, normal gastric mucosa-biopsy:mild reactive gastropathy (HPylori-), normal SB-biopsy:Celiac sprue, Mrasg StageI) OTHER SURGICAL HISTORY 12/2011 PROCEDURE: NE EXC PRTD NEHAL/PRTD GLND LAT LOBE W/O NRV DSJ; COMMENT: right COLONOSCOPY 02/18/2010 PROCEDURE: HISTORICAL COLONOSCOPY; COMMENT: Up to sigmoid, good preparation, normal ELBOW SURGERY 03/29/2018 Left PROCEDURE: HISTORICAL ELBOW SURGERY TUBAL LIGATION 2014 PROCEDURE: HISTORICAL TUBAL LIGATION CHOLECYSTECTOMY PROCEDURE: HISTORICAL CHOLECYSTECTOMY GASTRIC BYPASS 07/15/2020 PROCEDURE: NE GASTRIC RSTCV W/BYP W/SM INT RCNSTJ LIMIT ABSRPJ; COMMENT: lap vertical sleeve BREAST REDUCTION 03/2011 PROCEDURE: NE BREAST REDUCTION Medical History Medical History Date Comments GERD (gastroesophageal reflu x disease) 10/25/2007 DX:GERD (gastroesophageal re flux disease) Celiac disease 03/02/2010 DX:Celiac diseas e Vitamin D deficiency 07/03/2020 DX:Vitamin D deficiency Abnormal echocardiogram 06/08/2016 DX:Abnor mal echocardiogram; COMMENT: ?arrhythmogenic RV cardiomyopathy per [facility] endocrionology seeing patient for weight management, [...] 1 uncle, suddenly while eating dinner, presumed [place] Other: scd Father's side 2 uncle, found on the floor by , presumed [place] Colon cancer Maternal Grandfather Diabetes Maternal Grandfather CA [place] n No Known Problems Mother Asthma Sister [...] for your loved ones. For example, children's attendant or elderly care for an older adult? [...] pont Epidur al Livin g Rubens Delivery Location:[facility] 3 Term 3175 g (112 oz) M Vag-S pont Epidur al Livin g [facility] 5 Term 3175 g (112 oz) M [...] Description 10/06/2025 9:00 AM EST Office Visit [facility] Hematology Oncology [address] [place] [phone] Leann Prince DO [address] [place] [address] 10/13/2025 3:20 PM EST Office Visit Gastroenterology - 299 [facility] 299 [facility] [address] [place] [address] Olga Laws, VERNA 299 [facility] 419 [place] [address] 02/10/2026 2:45 PM EDT Office Visit Bariatric Surgery - [place] 175 [facility] [address] [place] [phone] Clay Ibarra MD [address] [place] [phone] Health Maintenance Due Date Last Done Comments Colorectal Cancer Screening: Colonoscopy 1980 HPV Vaccines (1 - 3-dose SCDM series) 2007 Breast Cancer Screening 10/06/2023 10/06/2021 Cervical Cancer Screening: HPV 11/14/2024 11/15/2019 Cholesterol Screening (Lipid Panel) 04/13/2025 04/13/2020 COVID-19 Vaccine ( season) 2025 11/07/2021, 03/09/2021, 02/16/2021 Influenza Vaccine (#1) 2025 2, 09/20/2021, 06/08/2020, Additional history exists Social Influencers [...] Procedure Name Priority Date/Time Associated Diagnosis Comments EXTERNAL CLINICAL LAB Routine 07/08/2025 1:53 PM EDT CULTURE URINE Routine 07/03/2025 11:25 AM EDT URINALYSIS WITH MICROSCOPIC Routine 07/02/2025 12:27 PM EDT EXTERNAL CLINICAL LAB 07/02/2025 US DUPLEX ABDOMEN/PELVIS/RETRO COMPLETE Routine 06/19/2025 10:27 [...] EDT Screen for STD (sexually transmitted disease) SCREENING MAMMOGRAPHY BI 2-VIEW BREAST INC CAD Routine 10/06/2021 10:41 AM EST Encounter for general adult medical examination without abnormal findings LIPID PANEL Routine 04/13/2020 HM HPV Routine 11/15/2019 from Last 3 Months or Most Recently Relevant to Health Maintenance Results * External clinical lab (07/08/2025 1:53 PM EDT) Only the most recent of2 resultswithin the time period is included. Historical Provider LAB BLOOD ORDERABLES Edit ed Result - Final * Culture urine (07/03/2025 11:25 AM EDT) Urine Urine specimen obtained by clean catch procedure / Unknown Jessenia Coles CNM LAB MICROBIOLOGY - GENERAL O RDERABLES Final Result * Urinalysis with microscopic (07/02/2025 12:27 PM EDT) Urine Urine specimen obtained by clean catch procedure / Unknown Jessenia Coles [facility] URINE ORDERABLES Final R esult [...] Signed Date: 06/19/2025 15:38 ET Workstation ID: [id number] Transcribed By: Self Edit Transcribed Date: 06/19/2025 [...] Signed Date: 06/19/2025 15:38 ET Workstation ID: [id number] Transcribed By: Self Edit Transcribed Date: 06/19/2025 [...] Signed Date: 06/19/2025 15:38 ET Workstation ID: [id number] Transcribed By: Self Edit Transcribed Date: 06/19/2025 [...] Signed Date: 06/19/2025 15:38 ET Workstation ID: [id number] Transcribed By: Self Edit Transcribed Date: 06/19/2025 14:27 ET Jessenia Coles CNM IMG US PROCEDURES Final Resu lt * Trichomonas vaginalis antigen (06/17/2025 11:13 AM EDT) Trichomonas vaginalis Negative Negative 06/17/2025 9:07 PM EDT [facility] Swab Cervix uteri structure / Unknown Non-blood Collection / Unknown 06/17/2025 11:13 AM EDT 06/17/2025 11:13 AM EDT Jessenia Coles CNM LAB MICROBIOLOGY - GENERAL O RDERABLES Final Result Performing Organization Address City/[facility]/ZIP Co de Phone Number [facility] [address] [place] [address], * Chlamydia trachomatis and Neisseria gonorrhoeae molecular study (06/17/2025 11:13 AM EDT) Neisseria gonorrhoeae PCR Negative Negative LAB MOLECULAR DIAGNOSTICS METHOD 06/18/2025 10:29 AM EDT [facility] Chlamydia trachomatis PCR Negative Negative LAB MOLECULAR DIAGNOSTICS METHOD 06/18/2025 10:29 AM EDT [facility] Swab Vaginal structure / Unknown Non-blood Collection / Unknown 06/17/2025 11:13 AM EDT 06/17/2025 11:13 AM EDT Jessenia Coles CNM LAB MICROBIOLOGY - GENERAL O RDERABLES Final Result [facility] [address] [place] [address], [place] [phone] * Hepatitis C antibody (06/17/2025 11:12 AM EDT) [facility] Hepatitis C Antibody Negative Negative LAB CHEMISTRY METHOD 06/17/2025 5:19 PM EDT [facility] Blood Venous blood specimen / Unknown Venipuncture / Unknown 06/17/2025 11:12 AM EDT 06/17/2025 11:12 AM EDT Jessenia Coles [facility] BLOOD ORDERABLES Final R esult Performing Organization Address City/[facility]/ZIP Co de Phone Number [facility] [address] [place] [address], [place] [phone] * HIV 1,2 antibody, p24 antigen with reflex to differentiation (06/17/2025 11:12 AM EDT) [facility] HIV Combo AB/AG Negative Negative LAB CHEMISTRY METHOD 06/17/2025 5:19 PM EDT [facility] Blood Venous blood specimen / Unknown Venipuncture / Unknown 06/17/2025 11:12 AM EDT 06/17/2025 11:12 AM EDT Narrative [facility] - 06/17/2025 5:19 PM EDT This assay is a 4th generation assay allowing for earlier detection of HIV infection by detecting the presence of the HIV-1 p24 antigen as well as the traditional antibodies to HIV type 1 (including group O) and type 2. Use of a 4th generation assay is the current CDC recommendation for HIV screening. Jessenia Coles [facility] BLOOD ORDERABLES Final R esult Performing Organization Address City/[facility]/ZIP Co de Phone Number [facility] [address] [place] [address], [place] [phone] * Treponema pallidum antibody with reflex to RPR and particle agglutination (06/17/2025 11:12 AM EDT) T. Pallidum Antibodies Negative Negative LAB CHEMISTRY METHOD 06/17/2025 2:39 PM EDT [facility] Blood Venous blood specimen / Unknown Venipuncture / Unknown 06/17/2025 11:12 AM EDT 06/17/2025 11:12 AM EDT us Jessenia GARCIA LAB BLOOD ORDERABLES Final R esult [facility] [address] [place] [address], [place] [phone] * SCREENING MAMMOGRAPHY BI 2-VIEW BREAST INC [...] screening mammography is recommended us Sada Yuriy PA IMG XR PROCEDURES Final Result * Lipid panel (04/13/2020) LDL/HDL Ratio 3 0 - 4 Triglycerides 57 0 - 150 mg/dL Cholesterol 148 0 - 200 mg/dL HDL 43 >=40 mg/dL LDL Cholesterol 94 0 - 100 mg/dL Blood Venous blood specimen / Unknown Historical Provider LAB BLOOD ORDERABLES Nayana l Result * Cervical Cancer Screening: HPV (11/15/2019) Pathologist [facility] Cervical Cancer Screening: HPV negative, abstracted Historical Provider HEALTH MAINTENANCE Final Result from Last 3 Months or Most Recently Relevant to Health Maintenance Insurance [facility] Advance Directives Documents on File Type Date Recorded Patient Sack Keeper Expl anation Health Care Decision (hx) 04/05/2024 AD ANNE DIRECTIVE Health Care Decision (hx) 04/05/2024 AD ANNE DIRECTIVE Health Care Decision (hx) 04/05/2024 AD ANNE DIRECTIVE Health Care Decision (hx) 04/05/2024 AD ANNE DIRECTIVE Care Teams Box Lidder Relationship Specialty Start Date End Date Negin Patel MD [address] [place] [phone] PCP - General Internal Medicine 04/08/22
--- OUTSIDE RECORDS SUMMARY | 2025-09-02 13:12 | XMS_ITS | Encounter Summary ---
Author Organization [facility] Address [address] [place] [phone] Phone Care Team Providers Care Signal And Communications Maintainer Name Role Phone Negin Patel MD Primary Care Provider [phone] Encounter Details Date Type Department Care Team (Late st Contact Info) Description 08/29/2022 Procedure Pass [place] Admitting Dept - Virtual Department [address] [place] [address] Social History Tobacco Use Types Packs/Day Years [...] on filedocumented in this encounter Care Teams Signal And Communications Maintainer Relationship Specialty Start Date End Date Negin Patel MD [address] [phone] PCP - General Internal Medicine 05/17/22 documented as of this encounter Additional Source Comments The information contained in this document represents components of the legal health record. It is not the complete legal health record.[facility]
[2025-09-02 13:23] LABS: Appearance Urine Cloudy; Glucose Urine UA Negative (Negative); PH 7.0 (5.0-9.0); Specific Gravity - Urine 1.020 (1.005-1.025); UMIC TRIGGER UACC YES
[2025-09-02 13:24] LABS: Alanine Aminotransferase 21 U/L (0-31); Albumin Level 4.3 g/dL (3.5-5.0); Alkaline Phosphatase 97 U/L (39-117); Anion Gap 11 (12-20); Aspartate Amino Transferase 26 U/L (5-31); Blood Urea Nitrogen 16 mg/dL (9-16); Calcium 9.4 mg/dL (8.4-10.2); Carbon Dioxide 28 mmol/L (22-29); Chloride 104 mmol/L (96-108); Creatinine Clr Calc Pharmacy 83.6; Estimated Glomerular Filt Rate > 60; Lipase 19 U/L (8-78); Magnesium 1.7 mg/dL (1.6-2.6); Potassium 4.1 mmol/L (3.3-5.1); Sodium 139 mmol/L (135-145); Total Protein 7.2 g/dL (6.5-8.0)
--- NOTE | 2025-09-02 13:32 | ED.ABDPAIN ---
HPI - Abdominal Pain General Chief Complaint: Abdominal Pain Stated Complaint: WEAK,DIZZY WHILE WORKING @ [facility] Time Seen by Provider: 09/02/25 12:39 History of Present Illness ED Provider: Lacie Galo NP HPI narrative: A 45-year-old female who denies significant medical history presents to the ED with chief complaint of a near syncopal event that occurred at work. Patient was brought in by ambulance from the clinic, reporting right-sided flank pain and occasional abdominal pain, as well as nausea without vomiting ongoing for about 4 days. Today she felt the pain became so severe that she started vomiting, and became lightheaded. She felt that her fingers were tingling, but she did not fully lose consciousness or pass out. Denies any active abdominal pain upon assessment, and is resting comfortably wearing headphones, on her phone. Denies any chest pain or pressure, shortness of breath. No recent subjective fever, chills. Endorsing urinary frequency, urgency, without dysuria or hematuria. Denies chance of . No diarrhea, constipation. Related Data Previous Rx's ?Medication ?Instructions ?Recorded cefpodoxime 200 mg tablet 200 mg PO Q12H 10 days #20 tabs 09/02/25 ondansetron 4 mg disintegrating 4 mg PO Q8H PRN nausea and 09/02/25 tablet vomiting #14 tabs Allergies Allergy/AdvReac Type Severity Reaction Status Date / Time cabbage Allergy Intermediate THROAT Verified 09/02/25 11:49 ITCHES latex (LATEX) Allergy Intermediate HIVES Verified 09/02/25 11:49 iris Allergy Intermediate THROAT Verified 09/02/25 11:49 ITCHES sulfamethoxazole (From Allergy Intermediate HIVES Verified 09/02/25 11:49 BACTRIM) trimethoprim (From BACTRIM) Allergy Intermediate HIVES Verified 09/02/25 11:49 Review of Systems Review of Systems ROS is otherwise negative unless mentioned in HPI. [facility] Social History Social History Advance Directives: No Advance Directives Information Provided: Yes Do you have a plan to hurt others: No Plan Physical Exam ED Exam Exam: Nursing notes and vital signs reviewed. Constitutional: Well-appearing, NAD. Alert. Oriented X3. Eyes: [place]OM[place]. ENT: Pharynx normal. Neck: Normal inspection. Neck supple. CVS: Normal heart rate and rhythm. Pulses normal. Respiratory: No respiratory distress. Breath sounds normal. Abdomen: Soft, nontender, nondistended. Mild discomfort to palpation over the suprapubic region. Right-sided CVA tenderness. Skin: Skin warm and dry. Normal skin color. Extremities: No lower extremity edema. Neuro: Oriented X 3. No motor deficit. Vital Signs: Vital Signs - 24 hr 09/02/25 11:44 09/02/25 13:34 09/02/25 15:18 Temperature 98.2 F Pulse Rate 104 H 92 108 H Respiratory Rate 16 16 16 Blood Pressure 115/75 122/72 105/72 Pulse Oximetry 98 98 100 Oxygen Delivery Method Room Air Room Air Room Air 09/02/25 16:10 Temperature Pulse Rate 92 Respiratory Rate 16 Blood Pressure 104/58 L Pulse Oximetry 100 Oxygen Delivery Method Room Air BMI result Body Mass Index 27.5 Medical Decision Making Medical Decision Making [facility] Narrative: Upon my initial assessment, she does appear quite comfortable, she is resting on her phone. She was brought in by EMS from the clinic, where she had a near syncopal event. She is complaining of urinary symptoms including urgency and frequency, without dysuria or hematuria. She has significant CVA tenderness on the right. Plan for urinalysis to rule out cystitis/pyelonephritis, EKG, urine , viral panel. 1:35 PM--urinalysis is positive with nitrites. There is moderate blood, 2+. She is not on her menstrual cycle. Does report that she noted some spotting yesterday. We will add on CT of the abdomen and pelvis to rule out renal stone and reassess. Given Rocephin. 3:40 PM-- CT with no evidence of pyelonephritis, though concern for developing pyelitis. Also no stone. She likely has hemorrhagic cystitis, or possibly this is related to her coming menstrual cycle. Plan to p.o. trial the patient while in the ED, as well as prepare discharge with oral antibiotics and oral antiemetics for home. 4:15 PM-- resting much more comfortably, is at bedside and agreeable to bring the patient home. I have provided her a work note. She was provided strict return precautions to the ED; she expressed understanding. Differential Diagnosis Differential Diagnoses: The differential diagnosis associated with the presentation includes Cystitis, pyelonephritis, , near-syncope, viral illness Admission/Observation Consideration of admission/observation: Escalation of care including admission/observation considered (Not indicated) Lab Data MDM Lab Attestation statement: I reviewed the patient's lab results. (Overall reassuring, only mild leukocytosis. Urinalysis positive for nitrites, negative viral panel.) 09/02/25 12:39 09/02/25 12:39 Labs: Lab Results 09/02/25 09/02/25 09/02/25 Range/Units 12:39 13:12 13:16 WBC 11.3 H (4.8-10.8) X10*3/uL RBC 4.66 (4.20-5.50) X10*6/uL Hgb 12.7 (12.0-16.0) g/dl Hct 38.8 (37.0-47.0) % MCV 83.3 (80.0-98.0) fL MCH 27.3 (27.0-33.0) pg MCHC 32.7 (31.0-35.0) g/dl RDW 13.9 (11.0-16.0) % Plt Count 296 (160-400) X10*3/uL MPV 8.9 L (9.4-12.3) fL Immature Gran % (Auto) 0.4 (0.0-0.4) % Neut % (Auto) 92.9 H (45-73) % Lymph % (Auto) 2.4 L (20-40) % Garza % (Auto) 3.2 (2-11) % Eos % (Auto) 0.7 (0-4) % Baso % (Auto) 0.4 (0-2) % Lymph # (Auto) 0.3 L (1.2-4.9) X10*3/uL Garza # (Auto) 0.4 (0.1-1.2) X10*3/uL Eos # (Auto) 0.1 (0.0-0.4) X10*3/uL Baso # (Auto) 0.0 (0.0-0.2) X10*3/uL Abs Immat Gran (auto) 0.04 H (0.00-0.03) X10*3/uL Absolute Neuts (auto) 10.5 H (2.0-8.3) x10*3/uL Absolute Nucleated RBC 0.000 (0.0-0.012) X10*3/uL Nucleated RBC % (auto) 0.0 (0.0-0.2) /100WBC Smear Tech's Comments VERIFIED Sodium 139 (135-145) mmol/L Potassium 4.1 (3.3-5.1) mmol/L Chloride 104 (96-108) mmol/L Carbon Dioxide 28 (22-29) mmol/L Anion Gap 11 L (12-20) BUN 16 (9-16) mg/dL Creatinine 0.83 (0.5-1.4) mg/dL Estim Creat Clear Calc 83.6 Estimated GFR > 60 Random Glucose 99 (60-115) mg/dL Calcium 9.4 (8.4-10.2) mg/dL Magnesium 1.7 (1.6-2.6) mg/dL Total Bilirubin 1.5 H (0.0-1.0) mg/dL AST 26 (5-31) U/L ALT 21 (0-31) U/L Alkaline Phosphatase 97 (39-117) U/L Troponin I High Sens < 2.7 (<3.5-17.0) ng/L Total Protein 7.2 (6.5-8.0) g/dL Albumin 4.3 (3.5-5.0) g/dL Lipase 19 (8-78) U/L Urine Color Yellow Urine Appearance Cloudy Urine pH 7.0 (5.0-9.0) Ur Specific Breaks 1.020 (1.005-1.025) Urine Protein 100 (2+) H (Neg-Trace) mg/dL Urine Glucose (UA) Negative (Negative) mg/dL Urine Ketones Negative (Negative) mg/dL Urine Blood Moderate (2+) H (Negative) Urine Nitrite Positive H (Negative) Ur Leukocyte Esterase Large (3+) H (Negative) Urine RBC 3-5 H (0-2) /HPF Urine WBC >50 H (0-5) /HPF Ur Squamous Epith Cells 0-2 (0-2) /HPF Urine Bacteria 4+ (None Seen) Hyaline Casts 3-5 (0-2) /LPF Influenza Type A (PCR) NEGATIVE (Negative) Influenza Type B (PCR) NEGATIVE (Negative) RSV RNA Qual (PCR) NEGATIVE (Negative) SARS-CoV-2 RNA (RT-PCR) NEGATIVE (Negative) Independent Interpretation I performed an independent interpretation of an: EKG Interpretation: Rate: 111 Rhythm: ST [place]: 46/-21/36 Normal P waves. Normal EDWAR. Normal QRS complex. ST T wave : no dep,elev qTC: 429 prior studies: similar The study has been interpreted contemporaneously by me. Radiology Impression Discussion of test interpretation with radiology: I have reviewed the radiologist's reading. Radiologist Impression: CT/CT abdomen pelvis w IV con IMPRESSION: Slight prominence of the right renal pelvis and proximal ureter with associated mucosal enhancement. Findings are suspicious for pyelitis. Clinical correlation is recommended. Independent Historian Clinical information obtained from an independent historian. History obtained from or confirmed by: Spouse External Record Review External record reviewed: Outside ED record Prescription Management I considered prescription management with: Pain Medication Declined, can use OTC meds Chronic Conditions None Social Determinants Patient?s care significantly limited by Social Determinants of Health including: Problems related to primary support group Medications Administered Discontinued Medications Generic Name Dose Route Start Last Admin Trade Name Freq PRN Reason Stop Dose Admin Sodium Chloride 1,000 mls @ 999 mls/hr 09/02/25 12:57 09/02/25 15:17 Ns IV 09/02/25 13:57 Infused .Q1H1M ONE Infusion Ceftriaxone Sodium 1 gm/ 50 mls @ 100 mls/hr 09/02/25 13:31 09/02/25 15:17 Sodium Chloride IV 09/02/25 14:00 Infused ONCE ONE Infusion Iohexol 100 ml 09/02/25 14:55 09/02/25 14:55 Iohexol 350 Mg/Ml 100 Ml Infus..Btl IV 09/02/25 14:56 85 ml ONCE ONE Administration Ketorolac Tromethamine 15 mg 09/02/25 12:57 09/02/25 13:32 Ketorolac Tromethamine 15 Mg/Ml Vial IVPUSH 09/02/25 12:58 15 mg ONCE ONE Administration Morphine Sulfate 4 mg 09/02/25 15:20 09/02/25 15:24 Morphine Sulfate 4 Mg/Ml Cartridge IVPUSH 09/02/25 15:21 4 mg ONCE ONE Administration Protocol Ondansetron HCl 4 mg 09/02/25 12:57 09/02/25 13:32 Ondansetron Hcl 4 Mg/2 Ml Vial IVPUSH 09/02/25 12:58 4 mg ONCE ONE Administration Discharge Plan Discharge Clinical Impression: Acute pyelitis Patient Disposition: Home, Self-Care Instructions: Kidney Infection (ED) Additional Instructions: As we discussed, your seen in the ER today for evaluation of flank pain, and a near syncopal event. Your workup here was overall reassuring, but we did find that you have a urinary tract infection, which refers to be causing some pyelitis, which is inflammation of part of the kidney. We found this on your CT scan, which does not show any evidence of kidney stones. Your viral panel is negative for COVID, flu, RSV. At this time, we are discharging you home. You received a dose of IV antibiotics. Please start taking the oral antibiotics that were prescribed you tomorrow. I have prescribed you a course of Zofran which may have use as needed for nausea, vomiting. If any time you develop any new, worsening complaints, please return back to the ED for additional assessment. You may use [id number] Tylenol, ibuprofen as needed for fever, or pain. Prescriptions: New cefpodoxime 200 mg tablet 200 mg PO Q12H 10 Days Qty: 20 0RF Rx Instructions: must administer with a meal/food ondansetron 4 mg tablet,disintegrating 4 mg PO Q8H PRN (Reason: nausea and vomiting) Qty: 14 0RF Referrals: [facility] [place]Provider Group, Family Practice] Stand Alone Forms: Work/School Release Print Language: Hebrew
[2025-09-02 13:34] VITALS: BP 122/72; PULSE 92; RESP 16; O2SAT 98
[2025-09-02 13:35] LABS: UACC Culture Trigger YES
[2025-09-02 13:49] LABS: Troponin-I High Sensitivity < 2.7 ng/L (<3.5-17.0)
[2025-09-02 14:08] LABS: Resp Syncy Virus RNA Qual PCR NEGATIVE (Negative); SARS COV2 PCR INHOUSE NEGATIVE (Negative)
[2025-09-02] MEDS: iohexoL 350 MG/ML 100 ML INFUS..BTL IV (14:55)
[2025-09-02 15:18] VITALS: BP 105/72; PULSE 108; RESP 16; O2SAT 100
[2025-09-02 16:10] VITALS: BP 104/58; PULSE 92; RESP 16; O2SAT 100
[2025-09-02 16:30] VITALS: BP 107/61; PULSE 115; RESP 16; TEMP 36.7; O2SAT 100
== END 2025-09-02 16:31 | disposition home or self-care (01) ==
PROVIDERS: Nurse Practitioner; Emergency Provider Emergency Medicine
DX: N10 Acute pyelonephritis (principal); Z03.818 Encounter for observation for suspected exposure to other biological agents ruled out
CPT/HCPCS: 36415; 74177; 80053; 81001; 83690; 83735; 84484; 85025; 87086; 87088; 87186; 87637; 93005; 96361; 96374; 96375; 99285; J0696; J1885; J2270; J2405; Q9967

== ENCOUNTER → 2025-09-02 12:57 | Outpatient (BNV) | payer OTHER, SELFPAY | PROVIDERS: Emergency Provider Emergency Medicine; Visit Provider Internal Medicine Cardiovascular Disease | DX: R00.0 Tachycardia, unspecified (principal) | CPT/HCPCS: 93010 ==

== ENCOUNTER → 2025-09-02 13:38 | Outpatient (BNV) | payer OTHER, SELFPAY | PROVIDERS: Emergency Provider Emergency Medicine; Visit Provider Radiology Diagnostic Radiology | DX: R10.A1 Flank pain, right side (principal) | CPT/HCPCS: 74177 ==